=== PATIENT | female | born 1965 | race Caucasian/White ===

== ENCOUNTER 2016-12-11 17:32 | Inpatient (IN) | payer MEDICAID, OTHER ==
[2016-12-11] MEDS ORDERED: Morphine 4 MG/ML VIAL ONE ×3 (17:45→21:25)
[2016-12-11] MEDS ORDERED: Sodium Chloride 0.9% 1,000 ML IV ONE (17:47)
--- NOTE | 2016-12-11 17:47 | C.PDOC ---
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 PATIENT STATES ONSET WHILE LIFTING HEAVY PATIENT PAIN LOCALIZED CONSTANT. +[place]. HO HERNIA REPAIR IN SAME AREA OF PAIN 2005. NO FEVER. NPO SINCE 12PM EXAM SEVERE DIST MILD TOX HEENT ANICETERIC MMM ABD OBESE +CENTRAL HERNIA MASS W MOD SEVERE LOCAL TEND, NONREDUCIBLE. SOFT SKIN GOOD TURGOR (Elsie Dykes) History Per: Patient History/Exam Limitations: no limitations Onset/Duration Of Symptoms: Hrs Current Symptoms Are (Timing): Still Present Severity: Moderate <Elsie Dykes - Last Filed: 12/11/16 18:51> <Lorrie Aponte - Last Filed: 12/11/16 22:12> Time Seen by Provider: 12/11/16 17:43 Chief Complaint (Nursing): Abdominal Pain Past Medical History Reviewed: Historical Data, Nursing Documentation, Vital Signs - Medical History PMH: Anemia, Asthma Family History: States: No Known Family Hx - Social History Hx Tobacco Use: Yes Hx Alcohol Use: No Hx Substance Use: No - Immunization History Hx Tetanus Toxoid Vaccination: No Hx Influenza Vaccination: No Hx Pneumococcal Vaccination: No <Elsie Dykes - Last Filed: 12/11/16 18:51> Review Of Systems Except As Marked, All Systems Reviewed And Found Negative. Constitutional: Negative for: Fever Cardiovascular: Negative for: Chest Pain Gastrointestinal: Positive for: Nausea, Vomiting, Abdominal Pain Musculoskeletal: Negative for: Back Pain Neurological: Negative for: Weakness, Numbness <Elsie Dykes - Last Filed: 12/11/16 18:51> Physical Exam - Physical Exam Appears: Other (SEVERE DISTRESS. MILD TOX) Skin: Warm, Dry, No Rash, Other (GOOD TURGOR) Head: Atraumatic, Normacephalic Eye(s): bilateral: Normal Inspection, PERRL, Other (anicteric) Nose: Normal Oral Mucosa: Moist Lips: Normal Appearing Neck: Normal ROM Cardiovascular: Rhythm Regular, No Murmur Respiratory: Normal Breath Sounds, No Accessory Muscle Use Gastrointestinal/Abdominal: Other (+CENTRAL HERNIA MASS W MOD SEVERE LOCAL TEND , NONREDUCIBLE. SOFT) Extremity: Normal ROM Neurological/Psych: Oriented x3, Normal Speech <Elsie Dykes - Last Filed: 12/11/16 18:51> ED Course And Treatment - Laboratory Results Result Diagrams: 12/11/16 18:20 12/11/16 18:20 <Elsie Dykes - Last Filed: 12/11/16 18:51> - Laboratory Results Result Diagrams: 12/11/16 18:20 12/11/16 18:20 O2 Sat by Pulse Oximetry: 100 Pulse Ox Interpretation: Normal Progress Note: surgical garment inspector at bedside. Unsuccesfully attempted to reduce the hernia. Pt not tolerating PO. Vomited the contrast material. 10 pm repeat lactic is 0.6 Dr esquivel is aware. <Lorrie Aponte - Last Filed: 12/11/16 22:12> Progress - Data Reviewed Data Reviewed: Lab, Diagnostic imaging, EKG, Old records - Critical Care Citical Care: Excluding Proc Time Critical Care Time: 120 minutes - Continuity of Care Discussed patient case with:: Patient <Elsie Dykes - Last Filed: 12/11/16 18:51> <Lorrie Aponte - Last Filed: 12/11/16 22:12> - Re-Evaluation Re-evaluation Note: 12/11/16 18:12 D/W SURG RESIDENT MELISSA AWARE OF ER FINDINGS WILL EVAL IN ER 12/11/16 18:31 PROCEDURE CLOSED REDUCTION ABD WALL HERNIA. S/P MORPHINE, ATIVAN. UNABLE TO REDUCE. PT TOLERATED WELL. +LACTATE 12/11/16 18:43 SURG RESIDENT NOTIFIED OF FAILED REDUCTION AND LACTATE. PENDING ER EVAL (Elsie Dykes) Critical Care Time - Critical Care Note Total Time (in mins): 30 Documented critical care: time excludes all time spent performing seperately billable procedures. <Lorrie Aponte - Last Filed: 12/11/16 22:12> Disposition <Elsie Dykes - Last Filed: 12/11/16 18:51> Discussed With : Randolph Zhang Comment: accepted the pt on his service and took over the care at 9:30PM Doctor Will See Patient In The: ED Counseled Patient/Family Regarding: Studies Performed, Diagnosis - Disposition Disposition Time: 19:00 <Lorrie Aponte - Last Filed: 12/11/16 22:12> - Disposition Disposition: HOSPITALIZED Condition: GUARDED - Clinical Impression Clinical Impression: Abdominal pain, Incarcerated hernia of abdominal cavity - Scribe Statement The provider has reviewed the documentation as recorded by the Scribe (Jyothi Marks) <Elsie Dykes - Last Filed: 12/11/16 18:51> <Lorrie Aponte - Last Filed: 12/11/16 22:12> - Scribe Statement All medical record entries made by the Scribe were at my direction and personally dictated by me. I have reviewed the chart and agree that the record accurately reflects my personal performance of the history, physical exam, medical decision making, and the department course for this patient. I have also personally directed, reviewed, and agree with the discharge instructions and disposition. (Elsie Dykes) Physician Patient Turnover Patient Signed Over To: Lorrie Aponte Handoff Comments: FU POSSIBLE REDUCTION REATTEMPT, SURG RESIDENT, CT, DISPO, LABS <Elsie Dykes - Last Filed: 12/11/16 18:51> Decision To Admit <Elsie Dykes - Last Filed: 12/11/16 18:51> - Pt Status Changed To: Hospital Disposition Of: Inpatient - Admit Certification Admit to Inpatient:: After my assessment, the patient will require hospitalization for at least two midnights. This is because of the severity of symptoms shown, intensity of services needed, and/or the medical risk in this patient being treated as an outpatient. - InPatient: Physician Admission Certification:: After my assessment, the patient will require hospitalization for at least two midnights. This is because of the severity of symptoms shown, intensity of services needed, and/or the medical risk in this patient being treated as an outpatient. - . Bed Request Type: Regular Admitting Physician: Randolph Zhang <Lorrie Aponte - Last Filed: 12/11/16 22:12> - . Patient Diagnosis: Abdominal pain, Incarcerated hernia of abdominal cavity
[2016-12-11] MEDS ORDERED: Iohexol 240 (50 ml) PO ONE (18:14)
[2016-12-11] MEDS ORDERED: Sodium Chloride 0.9% 1,000 ML ONE (18:21)
[2016-12-11 18:23] LABS: BASO % 0.7 % (0.0-2.0); EOS # 0.1 K/uL (0.0-0.7); EOS % 2.2 % (0.0-4.0); HEMOGLOBIN 12.4 g/dL (11.0-16.0); LYMPH # 2.5 K/uL (1.0-4.3); LYMPH % 40.4 % (20.0-40.0); MEAN CELL VOLUME 86.9 fL (81.0-99.0); MEAN CORPUSCULAR HEMOGLOBIN 28.2 pg (27.0-31.0); MEAN CORPUSCULAR HGB CONC 32.5 g/dL (33.0-37.0); MEAN PLATELET VOLUME 10.3 fL (7.2-11.7); MONO # 0.4 K/uL (0.0-0.8); MONO % 6.8 % (0.0-10.0); NEUT # 3.1 K/uL (1.8-7.0); NEUT % 49.9 % (50.0-75.0); RBC 4.41 Mil/uL (3.80-5.20); RED CELL DISTRIBUTION WIDTH 15.2 % (11.5-14.5); WHITE BLOOD COUNT 6.2 K/uL (4.8-10.8)
[2016-12-11 18:24] LABS: VENOUS BLOOD GAS BASE EXCESS -0.3 mmol/L (0.0-2.0); VENOUS BLOOD GAS PCO2 32 mmHg (40-60); VENOUS BLOOD GAS PO2 29 mm/Hg (30-55); VENOUS BLOOD PH 7.46 (7.32-7.43)
[2016-12-11 18:33] LABS: ALBUMIN 3.8 g/dL (3.5-5.0)
[2016-12-11 18:35] LABS: GFR AFRICAN-AMERICAN > 60; GFR NON-AFRICAN AMERICAN > 60
[2016-12-11 18:36] LABS: ALB/GLOB RATIO 1.1 (1.0-2.1); ALT/SGPT 24 U/L (9-52); AST/SGOT 16 U/L (14-36); BLOOD UREA NITROGEN 6 mg/dL (7-17)
[2016-12-11 18:37] LABS: CALCIUM 8.2 mg/dl (8.6-10.4); LIPASE 43 U/L (23-300)
[2016-12-11] MEDS ORDERED: Iohexol 240 (50 ml) ONE (19:16)
[2016-12-11] MEDS ORDERED: Piperacillin/Tazobact 3.375 gm 100 ML IVPB STA (19:32)
[2016-12-11] MEDS ORDERED: Iodixanol 320 MG/ML 100 ML BOTTLE IV ONE (19:45)
[2016-12-11] MEDS ORDERED: Piperacillin/Tazobact 3.375 gm 100 ML IVPB ONE (19:55)
--- NOTE | 2016-12-11 20:49 | CT ---
EXAM: CT Abdomen and Pelvis With Intravenous Contrast CLINICAL HISTORY: 51 years old, female; Pain; Abdominal pain; Generalized; Patient HX: Severe abdominal pain/with vomiting after lifting a patient at the senior care; Additional info: Lower abd pain RO incarc hernia TECHNIQUE: Axial computed tomography images of the abdomen and pelvis with intravenous contrast. This CT exam was performed using one or more of the following dose reduction techniques: automated exposure control, adjustment of the mA and/or kV according to patient size, and/or use of iterative reconstruction technique. Coronal and sagittal reformatted images were created and reviewed. CONTRAST: 100 mL of VISIPAQUE administered intravenously. EXAM DATE/TIME: 12/11/2016 6:13 PM COMPARISON: There are no prior studies for comparison. FINDINGS: Lower thorax: Heart size is normal. There is atelectasis and scarring at the lung bases. There is a hiatal hernia. ABDOMEN: Liver: There is fatty infiltration of the liver. Gallbladder and bile ducts: unremarkable Pancreas: unremarkable Spleen: unremarkable Adrenals: There is bilateral adrenal thickening. Kidneys and ureters: unremarkable Stomach and bowel: Stomach is almost completely empty. Rotation is normal. The proximal small bowel is mildly distended. There is a ventral hernia containing small bowel and fat. There is mild inflammation in herniated fat. Small bowel loop in the hernia is mildly distended. There is narrowing of one bowel loop at the orifice of the hernia. Distal ileum is decompressed. Terminal ileum is unremarkable. Appendix is unremarkable.Colon is incompletely distended which limits evaluation. Appendix: See above. PELVIS: Bladder: unremarkable Reproductive: Uterus and adnexal structures are unremarkable. ABDOMEN and PELVIS: Intraperitoneal space: There is no significant fluid. There is no free air. Bones/joints: There are degenerative changes in the osseus structures. There is sclerosis at the sacroiliac joints. Soft tissues: unremarkable Vasculature: There are vascular calcifications. Lymph nodes: There is no pathologic adenopathy. IMPRESSION: Ventral hernia containing fat and small bowel, mild inflammation in herniated fat suggest incarceration, mild small bowel dilatation with distal decompression suggestive early or partial small bowel obstruction Additional findings as described above.
[2016-12-11] MEDS ORDERED: Potassium Chloride 10 mEq ER Tab PO STA (21:18)
[2016-12-11 22:03] LABS: VENOUS BLOOD GAS BASE EXCESS -2.9 mmol/L (0.0-2.0); VENOUS BLOOD GAS PCO2 38 mmHg (40-60); VENOUS BLOOD GAS PO2 66 mm/Hg (30-55); VENOUS BLOOD PH 7.37 (7.32-7.43)
[2016-12-11] MEDS ORDERED: Home Med 1 UNIT (Naproxen [Naprosyn] 1 TAB) PO PRN (22:27)
[2016-12-11] MEDS ORDERED: Albuterol 0.083% Inhal Sol (2.5 mg/3 mL) UD IH PRN (22:27)
[2016-12-11 22:33] LABS: SQUAMOUS EPITHIAL 1 /hpf (0-5); URINE BACTERIA OCC (<OCC); URINE BILIRUBIN NEGATIVE (NEGATIVE); URINE BLOOD NEGATIVE (NEGATIVE); URINE CLARITY Clear (Clear); URINE COLOR Yellow (YELLOW); URINE GLUCOSE (UA) NORMAL (Normal); URINE LEUKOCYTE ESTERASE NEG Leu/uL (Negative); URINE NITRATE NEGATIVE (NEGATIVE); URINE PROTEIN NEGATIVE (NEGATIVE); URINE UROBILINOGEN NORMAL mg/dL (0.2-1.0)
--- NOTE | 2016-12-11 22:40 | CP.PCM.CON ---
<Graciela Kaufman - Last Filed: 12/11/16 23:01> History of Present Illness - History of Present Illness History of Present Illness: GENERAL SURGERY HISTORY AND PHYSICAL FOR DR. ZHANG 51yo F with PMHx of bronchitis and asthma s/p ventral hernia repair in 2005 presents to the ED with abdominal pain and ventral hernia. 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 Right after, she felt abdominal pain and a bulge above her belly button where her previous ventral hernia repair was done. She had associated nausea and vomiting. She came to the ED and initial lactate was 3.0. Repeat lactate was 0.6. Of note, she had previously had a ventral hernia repair done in [place] in 2005. She is unsure if they used mesh. She never had a recurrence of the hernia until now. PMHx: bronchitis, asthma Surgeries: Open ventral hernia repair, x4, tubal ligation Allergies: none Social history: smokes 12-15 a day, drinks wine occasionally Review of Systems - Review of Systems All systems: reviewed and no additional remarkable complaints except (as per HPI ) Past Patient History - Past Social History Smoking Status: Heavy Smoker > 10 Cigarettes Daily - PULMONARY Hx Asthma: Yes - HEMATOLOGICAL/ONCOLOGICAL Hx Anemia: Yes - PSYCHIATRIC Hx Substance Use: No - SURGICAL HISTORY Hx Section: Yes (X4) Hx Orthopedic Surgery: Yes (LEFT KNEE) - ANESTHESIA Hx Anesthesia: No Hx Anesthesia Reactions: No Meds Allergies/Adverse Reactions: Allergies Allergy/AdvReac Type Severity Reaction Status Date / Time No Known Allergies Allergy Verified 12/11/16 18:46 - Medications Medications: Current Medications Albuterol (Ventolin Hfa 90 Mcg/Actuation (8 G)) 2 puff IH Q4H PRN PRN Reason: Cough Home Med (Albuterol Sulfate [Albuterol Sulfate 2.5mg/3 Ml 0.083%]) 3 ml IH Q4H PRN PRN Reason: Cough Home Med (Methylprednisolone [Medrol Dose Pack (21 Tabs)]) 4 mg PO DAILY [facility] Home Med (Naproxen [Naprosyn]) 1 tab PO BID PRN PRN Reason: Pain Sodium Chloride (Sodium Chloride 0.9%) 1,000 mls @ 125 mls/hr IV .Q8H [facility] Morphine Sulfate (Morphine) 4 mg IVP Q4 PRN PRN Reason: Pain, moderate (4-7) Ondansetron HCl (Zofran Inj) 4 mg IVP Q4 PRN PRN Reason: Nausea/Vomiting Physical Exam - Constitutional Appears: Well, Non-toxic, No Acute Distress - Head Exam Head Exam: ATRAUMATIC, NORMAL INSPECTION - Eye Exam Eye Exam: EOMI, Normal appearance - Respiratory Exam Respiratory Exam: NORMAL BREATHING PATTERN. absent: Respiratory Distress - Cardiovascular Exam Cardiovascular Exam: +S1, +S2. absent: Tachycardia - GI/Abdominal Exam GI & Abdominal Exam: Hernia, Soft, Tenderness (localized tenderness over hernia site only). absent: Distended, Firm, Rebound, Rigid Additional comments: Soft, non reducible, tender supra umbilical hernia, no erythema surrounding area scar and previous hernia scar well healed - Extremities Exam Extremities exam: Positive for: normal inspection - Neurological Exam Neurological exam: Alert, CN II-XII Intact, Oriented x3 - Psychiatric Exam Psychiatric exam: Flat Affect, Normal Affect, Normal Mood - Skin Skin Exam: Dry, Intact, Normal Color, Warm Results - Vital Signs Recent Vital Signs: Last Vital Signs Temp 98.9 F 12/11/16 21:45 Pulse 58 L 12/11/16 21:45 Resp 18 12/11/16 21:45 BP 155/81 H 12/11/16 21:45 Pulse Ox 100 12/11/16 22:12 - Labs Result Diagrams: 12/11/16 18:20 12/11/16 18:20 Labs: Laboratory Results - last 24 hr 12/11/16 21:59 pO2 66 H VBG pH 7.37 VBG pCO2 38 L VBG HCO3 22.5 VBG Total CO2 23.2 VBG O2 Sat (Calc) 97.1 H VBG Base Excess -2.9 L VBG Potassium 3.4 L Sodium 140.0 Chloride 115.0 H Glucose 102 Lactate 0.6 L Venous Blood Potassium 3.4 L Assessment & Plan - Assessment and Plan (Free Text) Assessment: 1yo F with PMHx of bronchitis and asthma s/p ventral hernia repair in 2005 who has incarcerated ventral hernia - Afebrile, VSS - Initial lactate 3.0, repeat 0.6 - CT: ventral hernia containing fat and small bowel, mild inflammation in herniated fat suggests incarceration, mild small bowel dilation with distal decompression suggestive of early or partial SBO - Plan for laparoscopic vs open ventral hernia repair tomorrow AM - NPO - Discussed plan with Dr. Vicente Kaufman PGY-3 <Randolph Zhang - Last Filed: 12/14/16 20:26> Meds - Medications Medications: Current Medications Acetaminophen (Tylenol 325mg Tab) 975 mg PO Q8 [facility] Last Admin: 12/14/16 14:35 Dose: Not Given Albuterol (Ventolin Hfa 90 Mcg/Actuation (8 G)) 2 puff IH Q4H PRN PRN Reason: Cough Last Admin: 12/14/16 08:55 Dose: 2 puff Albuterol Sulfate (Albuterol 0.083% Inhal Rand (2.5 Mg/3 Ml) Ud) 3 mg IH Q4H PRN PRN Reason: Cough Enoxaparin Sodium (Lovenox) 40 mg SC DAILY [facility] Last Admin: 12/14/16 09:47 Dose: 40 mg Ketorolac Tromethamine (Toradol) 10 mg PO Q6 PRN PRN Reason: Pain, moderate (4-7) Last Admin: 12/14/16 08:01 Dose: 10 mg Methylprednisolone (Medrol) 4 mg PO DAILY [facility] Last Admin: 12/14/16 09:48 Dose: 4 mg Ondansetron HCl (Zofran Inj) 4 mg IVP Q4H PRN PRN Reason: Nausea/Vomiting Oxycodone HCl (Oxycodone Immediate Release Tab) 5 mg PO Q6 PRN PRN Reason: Pain, severe (8-10) Last Admin: 12/14/16 19:28 Dose: 5 mg Potassium Chloride (K-Dur 20 Meq Er Tab) 20 meq PO DAILY [facility] Last Admin: 12/14/16 09:46 Dose: 20 meq Simethicone (Mylicon Chew Tab) 80 mg PO DAILY PRN PRN Reason: GI distress Results - Vital Signs Recent Vital Signs: Last Vital Signs Temp 99 F 12/14/16 15:00 Pulse 67 12/14/16 15:00 Resp 20 12/14/16 15:00 BP 169/97 H 12/14/16 15:00 Pulse Ox 99 12/14/16 15:00 - Labs Result Diagrams: 12/14/16 07:08 08/01/17 07:08 Labs: Laboratory Results - last 24 hr 12/14/16 12/14/16 07:08 07:08 WBC 7.7 RBC 3.86 Hgb 11.2 Hct 33.9 L MCV 87.8 MCH 29.0 MCHC 33.0 RDW 14.5 Plt Count 150 MPV 11.2 Neut % (Auto) 69.6 Lymph % (Auto) 19.5 L [place] % (Auto) 8.5 Eos % (Auto) 1.8 Baso % (Auto) 0.6 Neut # 5.4 Lymph # 1.5 [place] # 0.7 Eos # 0.1 Baso # 0.0 Sodium 137 Potassium 3.2 L Chloride 97 L Carbon Dioxide 29 Anion Gap 13 BUN 3 L Creatinine 0.4 L Est GFR ( Amer) > 60 Est GFR (Non-Af Amer) > 60 Random Glucose 104 Calcium 8.1 L Total Bilirubin 0.8 AST 16 ALT 24 Alkaline Phosphatase 81 Total Protein 5.9 L Albumin 3.0 L Globulin 2.9 Albumin/Globulin Ratio 1.1 Attending/Attestation - Attestation I have personally seen and examined this patient.: Yes I have fully participated in the care of the patient.: Yes I have reviewed all pertinent clinical information: Yes Notes (Text): 12/14/16 20:26 Pt was seen and examined at bedside on 12/12/16 Agree with above note and assessment Pt with Incarcerated Incisional hernia No signs of strangulation Labs reviewed OR for Lap Incisional hernia repair with mesh Consent NPO, IVF Plan d.w pt in detail. Risk and benefit explained in detail.
[2016-12-11 23:14] LABS: SQUAMOUS EPITHIAL 1 /hpf (0-5); URINE BILIRUBIN NEGATIVE (NEGATIVE); URINE BLOOD NEGATIVE (NEGATIVE); URINE CLARITY Clear (Clear); URINE COLOR Yellow (YELLOW); URINE GLUCOSE (UA) NORMAL (Normal); URINE LEUKOCYTE ESTERASE NEG Leu/uL (Negative); URINE NITRATE NEGATIVE (NEGATIVE); URINE PROTEIN NEGATIVE (NEGATIVE); URINE UROBILINOGEN NORMAL mg/dL (0.2-1.0)
[2016-12-11 23:15] LABS: URINE BACTERIA FEW (<OCC)
--- NOTE | 2016-12-11 23:30 | CP.PCM.HP ---
<ShaeGraciela - Last Filed: 12/11/16 23:31> History of Present Illness - History of Present Illness History of Present Illness: GENERAL SURGERY HISTORY AND PHYSICAL FOR DR. ZHANG 51yo F with PMHx of bronchitis and asthma s/p ventral hernia repair in 2005 presents to the ED with abdominal pain and ventral hernia. 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 Right after, she felt abdominal pain and a bulge above her belly button where her previous ventral hernia repair was done. She had associated nausea and vomiting. She came to the ED and initial lactate was 3.0. Repeat lactate was 0.6. Of note, she had previously had a ventral hernia repair done in [place] in 2005. She is unsure if they used mesh. She never had a recurrence of the hernia until now. PMHx: bronchitis, asthma Surgeries: Open ventral hernia repair, x4, tubal ligation Allergies: none Social history: smokes 12-15 a day, drinks wine occasionally Present on Admission - Present on Admission Any Indicators Present on Admission: No Review of Systems - Review of Systems All systems: reviewed and no additional remarkable complaints except (as per hpi ) Past Patient History - Past Social History Smoking Status: Heavy Smoker > 10 Cigarettes Daily - PULMONARY Hx Asthma: Yes - HEMATOLOGICAL/ONCOLOGICAL Hx Anemia: Yes - PSYCHIATRIC Hx Substance Use: No - SURGICAL HISTORY Hx Section: Yes (X4) Hx Orthopedic Surgery: Yes (LEFT KNEE) - ANESTHESIA Hx Anesthesia: No Hx Anesthesia Reactions: No Meds Allergies/Adverse Reactions: Allergies Allergy/AdvReac Type Severity Reaction Status Date / Time No Known Allergies Allergy Verified 12/11/16 18:46 Physical Exam - Constitutional Appears: Non-toxic, No Acute Distress - Head Exam Head Exam: ATRAUMATIC, NORMAL INSPECTION - Eye Exam Eye Exam: EOMI, Normal appearance - Respiratory Exam Respiratory Exam: NORMAL BREATHING PATTERN. absent: Respiratory Distress - Cardiovascular Exam Cardiovascular Exam: +S1, +S2 - GI/Abdominal Exam GI & Abdominal Exam: Hernia, Soft, Tenderness (localized tenderness over hernia site). absent: Distended, Firm, Guarding, Rebound, Rigid Additional comments: Soft, non reducible, tender supra umbilical hernia, no erythema surrounding area scar and previous hernia scar well healed - Extremities Exam Extremities exam: Positive for: normal inspection - Neurological Exam Neurological exam: Alert, CN II-XII Intact, Oriented x3 - Psychiatric Exam Psychiatric exam: Flat Affect - Skin Skin Exam: Dry, Normal Color, Warm Results - Vital Signs Recent Vital Signs: Last Vital Signs Temp 98.7 F 12/11/16 23:19 Pulse 60 12/11/16 23:19 Resp 18 12/11/16 23:19 BP 156/83 H 12/11/16 23:19 Pulse Ox 96 12/11/16 23:19 - Labs Result Diagrams: 12/11/16 18:20 12/11/16 18:20 Labs: Laboratory Results - last 24 hr 12/11/16 12/11/16 21:59 23:01 pO2 66 H VBG pH 7.37 VBG pCO2 38 L VBG HCO3 22.5 VBG Total CO2 23.2 VBG O2 Sat (Calc) 97.1 H VBG Base Excess -2.9 L VBG Potassium 3.4 L Sodium 140.0 Chloride 115.0 H Glucose 102 Lactate 0.6 L Venous Blood Potassium 3.4 L Urine Color Yellow Urine Clarity Clear Urine pH 5.0 Ur Specific [place] > 1.060 H Urine Protein Negative Urine Glucose (UA) Normal Urine Ketones Negative Urine Blood Negative Urine Nitrate Negative Urine Bilirubin Negative Urine Urobilinogen Normal Ur Leukocyte Esterase Neg Urine RBC (Auto) 1 Ur Squamous Epith Cells 1 Urine Bacteria Few H Assessment & Plan - Assessment and Plan (Free Text) Assessment: 51yo F with PMHx of bronchitis and asthma s/p ventral hernia repair in 2005 who has incarcerated ventral hernia - Afebrile, VSS - Initial lactate 3.0, repeat 0.6 - CT: ventral hernia containing fat and small bowel, mild inflammation in herniated fat suggests incarceration, mild small bowel dilation with distal decompression suggestive of early or partial SBO - Plan for laparoscopic vs open ventral hernia repair tomorrow AM - NPO - Discussed plan with Dr. Vicente Kaufman PGY-3 <Randolph Zhang - Last Filed: 12/14/16 20:04> Results - Vital Signs Recent Vital Signs: Last Vital Signs Temp 99 F 12/14/16 15:00 Pulse 67 12/14/16 15:00 Resp 20 12/14/16 15:00 BP 169/97 H 12/14/16 15:00 Pulse Ox 99 12/14/16 15:00 - Labs Result Diagrams: 12/14/16 07:08 12/14/16 07:08 Labs: Laboratory Results - last 24 hr 12/14/16 12/14/16 07:08 07:08 WBC 7.7 RBC 3.86 Hgb 11.2 Hct 33.9 L MCV 87.8 MCH 29.0 MCHC 33.0 RDW 14.5 Plt Count 150 MPV 11.2 Neut % (Auto) 69.6 Lymph % (Auto) 19.5 L [place] % (Auto) 8.5 Eos % (Auto) 1.8 Baso % (Auto) 0.6 Neut # 5.4 Lymph # 1.5 [place] # 0.7 Eos # 0.1 Baso # 0.0 Sodium 137 Potassium 3.2 L Chloride 97 L Carbon Dioxide 29 Anion Gap 13 BUN 3 L Creatinine 0.4 L Est GFR ( Amer) > 60 Est GFR (Non-Af Amer) > 60 Random Glucose 104 Calcium 8.1 L Total Bilirubin 0.8 AST 16 ALT 24 Alkaline Phosphatase 81 Total Protein 5.9 L Albumin 3.0 L Globulin 2.9 Albumin/Globulin Ratio 1.1 Attending/Attestation - Attestation I have personally seen and examined this patient.: Yes I have fully participated in the care of the patient.: Yes I have reviewed all pertinent clinical information: Yes Notes (Text): 12/14/16 20:03 Pt was seen and examined at bedside on 12/12/16 Agree with above note and assessment Pt with Incarcerated Incisional hernia No signs of strangulation Labs reviewed OR for Lap Incisional hernia repair with mesh Consent NPO, IVF Plan d.w pt in detail. Risk and benefit explained in detail.
[2016-12-12] MEDS: Morphine 4 MG/ML VIAL IVP PRN ×2 (02:25→07:57)
[2016-12-12] MEDS: Sodium Chloride 0.9% 1,000 ML IV SCH ×4 (02:26→22:09)
[2016-12-12] MEDS ORDERED: Morphine 4 MG/ML VIAL IVP STA (05:26)
[2016-12-12 08:32] LABS: BASO # 0.1 K/uL (0.0-0.2); BASO % 1.1 % (0.0-2.0); EOS # 0.1 K/uL (0.0-0.7); EOS % 1.5 % (0.0-4.0); HEMOGLOBIN 11.2 g/dL (11.0-16.0); LYMPH % 33.9 % (20.0-40.0); MEAN CELL VOLUME 88.2 fL (81.0-99.0); MEAN CORPUSCULAR HEMOGLOBIN 28.9 pg (27.0-31.0); MEAN CORPUSCULAR HGB CONC 32.7 g/dL (33.0-37.0); MEAN PLATELET VOLUME 10.6 fL (7.2-11.7); MONO # 0.4 K/uL (0.0-0.8); MONO % 6.9 % (0.0-10.0); NEUT # 3.4 K/uL (1.8-7.0); NEUT % 56.6 % (50.0-75.0); RBC 3.88 Mil/uL (3.80-5.20); RED CELL DISTRIBUTION WIDTH 15.1 % (11.5-14.5); WHITE BLOOD COUNT 5.9 K/uL (4.8-10.8)
[2016-12-12 08:48] LABS: ALBUMIN 3.1 g/dL (3.5-5.0)
[2016-12-12 08:50] LABS: GFR AFRICAN-AMERICAN > 60; GFR NON-AFRICAN AMERICAN > 60
[2016-12-12 08:51] LABS: ALB/GLOB RATIO 1.1 (1.0-2.1); ALT/SGPT 24 U/L (9-52); AST/SGOT 15 U/L (14-36); BLOOD UREA NITROGEN 5 mg/dL (7-17)
[2016-12-12 08:52] LABS: CALCIUM 7.7 mg/dl (8.6-10.4)
--- NOTE | 2016-12-12 11:09 | RAD ---
HISTORY: pre op COMPARISON: 04/12/2014 FINDINGS: LUNGS: The lungs are well inflated and clear. PLEURA: No significant pleural effusion identified, no pneumothorax apparent. CARDIOVASCULAR: The heart is normal in size. OSSEOUS STRUCTURES: No significant abnormalities. VISUALIZED UPPER ABDOMEN: Normal. OTHER FINDINGS: None. IMPRESSION: No active pulmonary disease.
[2016-12-12 11:29] LABS: INR 1.1; PROTHROMBIN TIME 12.4 SECONDS (9.7-12.2)
[2016-12-12] MEDS ORDERED: HYDROmorphone 0.5 mg/0.5 ml ISec IVP STA (11:43)
[2016-12-12] MEDS ORDERED: Lactated Ringer's 1,000 ML IV ONE ×4 (12:20→16:00)
[2016-12-12] MEDS ORDERED: ceFAZolin IV 2 gm in Dextrose 1 GM/50 ML BAG IVPB ONE (12:25)
[2016-12-12] MEDS ORDERED: Midazolam 2 MG/2 ML VIAL ONE (12:27)
[2016-12-12] MEDS ORDERED: Propofol 10 mg/ml Inj (20 ML) ONE (12:27)
[2016-12-12] MEDS ORDERED: Bupivacaine HCl 0.25% PF (10 ml) Inj ONE (12:49)
[2016-12-12] MEDS ORDERED: Lidocaine 1% w Epi 1:100,000 Inj ONE (12:49)
[2016-12-12] MEDS ORDERED: Succinylcholine Chloride 20 mg/ml Syr (5 ml) IV ONE (13:57)
[2016-12-12] MEDS ORDERED: DiphenhydrAMINE 50 mg/ml Inj IVP PRN (14:56)
[2016-12-12] MEDS ORDERED: HYDROmorphone 0.5 mg/0.5 ml ISec IVP PRN ×2 (14:56→16:06)
--- NOTE | 2016-12-12 16:04 | PCM.SURG1 ---
Surgeon's Initial Post Op Note - Surgeon's Notes Surgeon: Dr. Zhang Ux Developer: Dr. Rebolledo PGY-2 Type of Anesthesia: General Endo Pre-Operative Diagnosis: incarcerated ventral hernia Operative Findings: see operative report Post-Operative Diagnosis: see operative report Operation Performed: extensive lysis of adhesions. incarcerated ventral hernia repair w/ mesh placement Specimen/Specimens Removed: hernia sac. mesh from prior hernia surgical repair Estimated Blood Loss: EBL {In ML}: 10 Blood Products Given: N/A Drains Used: No Drains Post-Op Condition: Good Date of Surgery/Procedure: 12/12/16 Time of Surgery/Procedure: 16:03
[2016-12-12] MEDS: Piperacillin/Tazobact 3.375 GM in Sodium Chloride 100 ML IVPB SCH ×2 (16:35→22:08)
[2016-12-12] MEDS: HYDROmorphone 0.5 mg/0.5 ml ISec IVP PRN ×2 (17:26→20:55)
[2016-12-12] MEDS: Lactated Ringer's 1,000 ML IV SCH (19:26)
[2016-12-13] MEDS: HYDROmorphone 0.5 mg/0.5 ml ISec IVP PRN ×3 (00:01→06:04)
[2016-12-13] MEDS: Piperacillin/Tazobact 3.375 GM in Sodium Chloride 100 ML IVPB SCH ×2 (06:00→10:41)
[2016-12-13] MEDS: Lactated Ringer's 1,000 ML IV SCH ×2 (06:08→11:32)
[2016-12-13] MEDS: Sodium Chloride 0.9% 1,000 ML IV SCH (06:21)
[2016-12-13 07:59] LABS: BASO % 0.4 % (0.0-2.0); EOS % 0.3 % (0.0-4.0); HEMOGLOBIN 10.8 g/dL (11.0-16.0); LYMPH # 1.2 K/uL (1.0-4.3); LYMPH % 14.4 % (20.0-40.0); MEAN CELL VOLUME 87.7 fL (81.0-99.0); MEAN CORPUSCULAR HEMOGLOBIN 28.8 pg (27.0-31.0); MEAN CORPUSCULAR HGB CONC 32.8 g/dL (33.0-37.0); MEAN PLATELET VOLUME 10.6 fL (7.2-11.7); MONO # 0.6 K/uL (0.0-0.8); MONO % 7.1 % (0.0-10.0); NEUT # 6.4 K/uL (1.8-7.0); NEUT % 77.8 % (50.0-75.0); RBC 3.76 Mil/uL (3.80-5.20); RED CELL DISTRIBUTION WIDTH 14.5 % (11.5-14.5); WHITE BLOOD COUNT 8.2 K/uL (4.8-10.8)
[2016-12-13 08:07] LABS: ALBUMIN 3.1 g/dL (3.5-5.0)
[2016-12-13 08:10] LABS: AST/SGOT 19 U/L (14-36); GFR AFRICAN-AMERICAN > 60; GFR NON-AFRICAN AMERICAN > 60
[2016-12-13 08:11] LABS: ALB/GLOB RATIO 1.1 (1.0-2.1); ALT/SGPT 23 U/L (9-52); BLOOD UREA NITROGEN 5 mg/dL (7-17)
[2016-12-13] MEDS ORDERED: Oxycodone/Acetaminophen 5/325 mg Tab PO PRN ×4 (09:16→17:46)
[2016-12-13] MEDS: Enoxaparin 40 mg Syringe SC SCH (09:33)
--- NOTE | 2016-12-13 12:29 | CP.PCM.PN ---
<Winston LoganLetarosy - Last Filed: 12/13/16 12:26> Subjective - Date & Time of Evaluation Date of Evaluation: 12/13/16 Time of Evaluation: 12:26 - Subjective Subjective: Surgery: Dr. Zhang Patient complaining of mild pain to the abdomen. She states she feels much better than she did prior to surgery. She denies f/c/n/v. She reports dry cough. She states she has been OOB to bathroom. She reports using IS. Objective - Vital Signs/Intake and Output Vital Signs (last 24 hours): Temp Pulse Resp BP Pulse Ox 98 F 64 20 148/103 H 99 12/13/16 08:18 12/13/16 08:18 12/13/16 08:18 12/13/16 08:18 12/13/16 08:18 Intake and Output: 12/13/16 12/13/16 06:59 18:59 Intake Total 2200 Output Total 800 Balance 1400 - Medications Medications: Current Medications Albuterol (Ventolin Hfa 90 Mcg/Actuation (8 G)) 2 puff IH Q4H PRN PRN Reason: Cough Albuterol Sulfate (Albuterol 0.083% Inhal Rand (2.5 Mg/3 Ml) Ud) 3 mg IH Q4H PRN PRN Reason: Cough Enoxaparin Sodium (Lovenox) 40 mg SC DAILY [facility] Last Admin: 12/13/16 09:33 Dose: 40 mg Potassium Chloride/Dextrose/Sod Cl (Potassium Chl 20 Meq In D5-1/2ns) 1,000 mls @ 125 mls/hr IV .Q8H [facility] Ibuprofen (Motrin Tab) 600 mg PO QID PRN PRN Reason: Pain, moderate (4-7) Methylprednisolone (Medrol) 4 mg PO DAILY [facility] Last Admin: 12/13/16 09:33 Dose: 4 mg Ondansetron HCl (Zofran Inj) 4 mg IVP Q4H PRN PRN Reason: Nausea/Vomiting Oxycodone/Acetaminophen (Percocet 5/325 Mg Tab) 1 tab PO Q4H PRN PRN Reason: Pain, moderate (4-7) Stop: 12/16/16 12:26 Oxycodone/Acetaminophen (Percocet 5/325 Mg Tab) 2 tab PO Q4H PRN PRN Reason: Pain, severe (8-10) Stop: 12/16/16 09:17 Pneumococcal Polyvalent Vaccine (Pneumovax 23 Vaccine) 0.5 ml IM .ONCE ONE Stop: 12/14/16 15:10 - Labs Labs: 12/13/16 07:45 12/13/16 07:45 PT 12.4 SECONDS (9.7-12.2) H 12/12/16 11:17 INR 1.1 12/12/16 11:17 APTT 33 SECONDS (21-34) 12/12/16 11:17 - Constitutional Appears: Non-toxic, No Acute Distress - Head Exam Head Exam: ATRAUMATIC, NORMOCEPHALIC - Eye Exam Eye Exam: EOMI, Normal appearance - ENT Exam ENT Exam: Mucous Membranes Moist - Respiratory Exam Respiratory Exam: NORMAL BREATHING PATTERN. absent: Respiratory Distress - Cardiovascular Exam Cardiovascular Exam: REGULAR RHYTHM. absent: Tachycardia - GI/Abdominal Exam GI & Abdominal Exam: Soft, Tenderness (nohemy-incisional which is appropriate. Dressing CDI. ). absent: Guarding, Rigid, Rebound - Neurological Exam Neurological Exam: Alert, Awake, Oriented x3 - Psychiatric Exam Psychiatric exam: Normal Affect, Normal Mood - Skin Skin Exam: Dry, Normal Color, Warm Assessment and Plan - Assessment and Plan (Free Text) Assessment: 51 y/o female s/p incarcerated ventral hernia laparoscopic repair w/ mesh POD1 Plan: -regular diet -pain control -DVT prohylaxis -encourage OOB and IS use -further recs per Dr. Zhang AKWhite PGY3 <Randolph Zhang B - Last Filed: 12/14/16 20:14> Objective - Vital Signs/Intake and Output Vital Signs (last 24 hours): Temp Pulse Resp BP Pulse Ox 99 F 67 20 169/97 H 99 12/14/16 15:00 12/14/16 15:00 12/14/16 15:00 12/14/16 15:00 12/14/16 15:00 Intake and Output: 12/14/16 12/15/16 18:59 06:59 Intake Total 1300 Balance 1300 - Medications Medications: Current Medications Acetaminophen (Tylenol 325mg Tab) 975 mg PO Q8 [facility] Last Admin: 12/14/16 14:35 Dose: Not Given Albuterol (Ventolin Hfa 90 Mcg/Actuation (8 G)) 2 puff IH Q4H PRN PRN Reason: Cough Last Admin: 12/14/16 08:55 Dose: 2 puff Albuterol Sulfate (Albuterol 0.083% Inhal Rand (2.5 Mg/3 Ml) Ud) 3 mg IH Q4H PRN PRN Reason: Cough Enoxaparin Sodium (Lovenox) 40 mg SC DAILY [facility] Last Admin: 12/14/16 09:47 Dose: 40 mg Ketorolac Tromethamine (Toradol) 10 mg PO Q6 PRN PRN Reason: Pain, moderate (4-7) Last Admin: 12/14/16 08:01 Dose: 10 mg Methylprednisolone (Medrol) 4 mg PO DAILY [facility] Last Admin: 12/14/16 09:48 Dose: 4 mg Ondansetron HCl (Zofran Inj) 4 mg IVP Q4H PRN PRN Reason: Nausea/Vomiting Oxycodone HCl (Oxycodone Immediate Release Tab) 5 mg PO Q6 PRN PRN Reason: Pain, severe (8-10) Last Admin: 12/14/16 19:28 Dose: 5 mg Potassium Chloride (K-Dur 20 Meq Er Tab) 20 meq PO DAILY [facility] Last Admin: 12/14/16 09:46 Dose: 20 meq Simethicone (Mylicon Chew Tab) 80 mg PO DAILY PRN PRN Reason: GI distress - Labs Labs: 12/14/16 07:08 12/14/16 07:08 PT 12.4 SECONDS (9.7-12.2) H 12/12/16 11:17 INR 1.1 12/12/16 11:17 APTT 33 SECONDS (21-34) 12/12/16 11:17 Attending/Attestation - Attestation I have personally seen and examined this patient.: Yes I have fully participated in the care of the patient.: Yes I have reviewed all pertinent clinical information, including history, physical exam and plan: Yes Notes (Text): 12/14/16 20:14 Pt was seen and examined at bedside on 12/13/16 Agree with above note and assessment
[2016-12-13] MEDS: Potassium Chloride 20 mEq ER Tab PO SCH (13:16)
[2016-12-13] MEDS: Potassium Ch 20mEq in D5-1/2NS 1,000 ML IV SCH ×2 (13:18→22:56)
[2016-12-14 02:37] VITALS: RESP 20
[2016-12-14] MEDS: Potassium Ch 20mEq in D5-1/2NS 1,000 ML IV SCH ×2 (05:00→12:27)
[2016-12-14 07:26] LABS: BASO % 0.6 % (0.0-2.0); EOS # 0.1 K/uL (0.0-0.7); EOS % 1.8 % (0.0-4.0); HEMOGLOBIN 11.2 g/dL (11.0-16.0); LYMPH # 1.5 K/uL (1.0-4.3); LYMPH % 19.5 % (20.0-40.0); MEAN CELL VOLUME 87.8 fL (81.0-99.0); MEAN PLATELET VOLUME 11.2 fL (7.2-11.7); MONO # 0.7 K/uL (0.0-0.8); MONO % 8.5 % (0.0-10.0); NEUT # 5.4 K/uL (1.8-7.0); NEUT % 69.6 % (50.0-75.0); RBC 3.86 Mil/uL (3.80-5.20); RED CELL DISTRIBUTION WIDTH 14.5 % (11.5-14.5); WHITE BLOOD COUNT 7.7 K/uL (4.8-10.8)
[2016-12-14 07:53] LABS: GFR AFRICAN-AMERICAN > 60; GFR NON-AFRICAN AMERICAN > 60
[2016-12-14 07:54] LABS: ALB/GLOB RATIO 1.1 (1.0-2.1); ALT/SGPT 24 U/L (9-52); AST/SGOT 16 U/L (14-36); BLOOD UREA NITROGEN 3 mg/dL (7-17); CALCIUM 8.1 mg/dl (8.6-10.4)
[2016-12-14] MEDS: Albuterol HFA 90 mcg/actuation (8 g) IH PRN (08:55)
[2016-12-14] MEDS ORDERED: Simethicone 80 mg Chewtab PO PRN (09:43)
[2016-12-14] MEDS: Potassium Chloride 20 mEq ER Tab PO SCH (09:46)
[2016-12-14] MEDS: Enoxaparin 40 mg Syringe SC SCH (09:47)
--- NOTE | 2016-12-14 09:51 | CP.PCM.PN ---
<Mann Rebolledo - Last Filed: 12/14/16 22:23> Subjective - Date & Time of Evaluation Date of Evaluation: 12/14/16 Time of Evaluation: 07:00 - Subjective Subjective: Patient seen and examined this morning. Reports mild abdominal pain along surgical incision sites. Patient tolerating diet. Had bowel movement this morning. Abdominal dressings c/d/i. Objective - Vital Signs/Intake and Output Vital Signs (last 24 hours): Temp Pulse Resp BP Pulse Ox 98.9 F 63 20 155/87 H 99 12/14/16 07:41 12/14/16 07:41 12/14/16 07:41 12/14/16 07:41 12/14/16 07:41 Intake and Output: 12/14/16 12/14/16 06:59 18:59 Intake Total 1780 Balance 1780 - Medications Medications: Current Medications Acetaminophen (Tylenol 325mg Tab) 650 mg PO Q6 PRN PRN Reason: Pain, Mild (1-3) Albuterol (Ventolin Hfa 90 Mcg/Actuation (8 G)) 2 puff IH Q4H PRN PRN Reason: Cough Last Admin: 12/14/16 08:55 Dose: 2 puff Albuterol Sulfate (Albuterol 0.083% Inhal Rand (2.5 Mg/3 Ml) Ud) 3 mg IH Q4H PRN PRN Reason: Cough Enoxaparin Sodium (Lovenox) 40 mg SC DAILY [facility] Last Admin: 12/14/16 09:47 Dose: 40 mg Potassium Chloride/Dextrose/Sod Cl (Potassium Chl 20 Meq In D5-1/2ns) 1,000 mls @ 125 mls/hr IV .Q8H [facility] Last Admin: 12/14/16 05:00 Dose: 125 mls/hr Ketorolac Tromethamine (Toradol) 10 mg PO Q6 PRN PRN Reason: Pain, moderate (4-7) Last Admin: 12/14/16 08:01 Dose: 10 mg Methylprednisolone (Medrol) 4 mg PO DAILY [facility] Last Admin: 12/14/16 09:48 Dose: 4 mg Ondansetron HCl (Zofran Inj) 4 mg IVP Q4H PRN PRN Reason: Nausea/Vomiting Oxycodone/Acetaminophen (Percocet 5/325 Mg Tab) 1 tab PO Q4H PRN PRN Reason: Pain, severe (8-10) Stop: 12/16/16 12:26 Last Admin: 12/13/16 22:54 Dose: 1 tab Pneumococcal Polyvalent Vaccine (Pneumovax 23 Vaccine) 0.5 ml IM .ONCE ONE Stop: 12/14/16 15:10 Potassium Chloride (K-Dur 20 Meq Er Tab) 20 meq PO DAILY [facility] Last Admin: 12/14/16 09:46 Dose: 20 meq Simethicone (Mylicon Chew Tab) 80 mg PO DAILY PRN PRN Reason: GI distress - Labs Labs: 12/14/16 07:08 12/14/16 07:08 PT 12.4 SECONDS (9.7-12.2) H 12/12/16 11:17 INR 1.1 12/12/16 11:17 APTT 33 SECONDS (21-34) 12/12/16 11:17 - Constitutional Appears: No Acute Distress - Head Exam Head Exam: NORMOCEPHALIC - Eye Exam Eye Exam: Normal appearance - ENT Exam ENT Exam: Mucous Membranes Moist - Respiratory Exam Respiratory Exam: NORMAL BREATHING PATTERN - Cardiovascular Exam Cardiovascular Exam: +S1, +S2 - GI/Abdominal Exam GI & Abdominal Exam: Soft, Tenderness - Neurological Exam Neurological Exam: Alert, Awake, Oriented x3 - Psychiatric Exam Psychiatric exam: Normal Mood - Skin Skin Exam: Normal Color, Warm Assessment and Plan - Assessment and Plan (Free Text) Assessment: 51 y/o female s/p incarcerated ventral hernia laparoscopic repair w/ mesh POD2 -regular diet -c/w analgesic -simethicone -DVT prohylaxis -encourage OOB and IS use -Monitor bowel function -further recs per Dr. Vicente Rebolledo PGY-2 <Randolph Zhang - Last Filed: 12/15/16 11:36> Objective - Vital Signs/Intake and Output Vital Signs (last 24 hours): Temp Pulse Resp BP Pulse Ox 98.5 F 80 20 127/82 96 12/15/16 08:00 12/15/16 08:00 12/15/16 08:00 12/15/16 08:00 12/15/16 08:00 Intake and Output: 12/15/16 12/15/16 06:59 18:59 Intake Total 490 Balance 490 - Medications Medications: Current Medications Acetaminophen (Tylenol 325mg Tab) 975 mg PO Q8 [facility] Last Admin: 12/15/16 06:31 Dose: Not Given Albuterol (Ventolin Hfa 90 Mcg/Actuation (8 G)) 2 puff IH Q4H PRN PRN Reason: Cough Last Admin: 12/15/16 03:12 Dose: 2 puff Albuterol Sulfate (Albuterol 0.083% Inhal Rand (2.5 Mg/3 Ml) Ud) 3 mg IH Q4H PRN PRN Reason: Cough Enoxaparin Sodium (Lovenox) 40 mg SC DAILY [facility] Last Admin: 12/15/16 10:07 Dose: Not Given Ketorolac Tromethamine (Toradol) 10 mg PO Q6 PRN PRN Reason: Pain, moderate (4-7) Last Admin: 12/14/16 08:01 Dose: 10 mg Methylprednisolone (Medrol) 4 mg PO DAILY [facility] Last Admin: 12/15/16 10:07 Dose: Not Given Ondansetron HCl (Zofran Inj) 4 mg IVP Q4H PRN PRN Reason: Nausea/Vomiting Last Admin: 12/15/16 02:45 Dose: 4 mg Oxycodone HCl (Oxycodone Immediate Release Tab) 5 mg PO Q6 PRN PRN Reason: Pain, severe (8-10) Last Admin: 12/15/16 03:07 Dose: 5 mg Potassium Chloride (K-Dur 20 Meq Er Tab) 20 meq PO DAILY [facility] Last Admin: 12/15/16 10:07 Dose: 20 meq Simethicone (Mylicon Chew Tab) 80 mg PO DAILY PRN PRN Reason: GI distress Last Admin: 12/15/16 02:45 Dose: 80 mg - Labs Labs: 12/14/16 07:08 12/14/16 07:08 PT 12.4 SECONDS (9.7-12.2) H 12/12/16 11:17 INR 1.1 12/12/16 11:17 APTT 33 SECONDS (21-34) 12/12/16 11:17 Attending/Attestation - Attestation I have personally seen and examined this patient.: Yes I have fully participated in the care of the patient.: Yes I have reviewed all pertinent clinical information, including history, physical exam and plan: Yes Notes (Text): 12/15/16 11:36 Pt was seen and examined at bedside on 12/14/16 Agree with above note and assessment
[2016-12-14] MEDS ORDERED: Potassium Chloride 20 mEq ER Tab PO ONE (12:45)
[2016-12-14] MEDS ORDERED: Pneumococcal 23-Valent Vaccine IM ONE (15:09)
[2016-12-14] MEDS: oxyCODONE 5 mg Immediate Release Tab PO PRN (19:28)
--- NOTE | 2016-12-15 02:50 | OP ---
PROCEDURE DATE: 12/12/2016 PREOPERATIVE DIAGNOSES: 1. Incarcerated ventral hernia. 2. Abdominal pain. 3. Morbid obesity. 4. Status post umbilical hernia repair 10 years ago and also status post section. POSTOPERATIVE DIAGNOSES: 1. Incarcerated ventral hernia. 2. Abdominal pain. 3. Morbid obesity. 4. Status post umbilical hernia repair 10 years ago and also status post section. 5. Extensive postoperative adhesion. PROCEDURE DONE: 1. Laparoscopic incisional incarcerated hernia repair with mesh. 2. Laparoscopic extensive lysis of adhesion. 3. Laparoscopic removal of old mesh/foreign body. 4. Laparoscopic enterorrhaphy for subserosal hematoma SURGEON: Randolph Zhang MD SPRAY BLENDER: Mann Rebolledo, PGY-II resident. TYPE OF ANESTHESIA: General endotracheal tube anesthesia. DRAINS: None. PATHOLOGY: 1. Hernia sac and content was sent for the pathology. 2. Foreign body and old mesh. ESTIMATED BLOOD LOSS: Around 10 mL. INTRAOPERATIVE FINDINGS: The patient had extensive postoperative adhesions due to the previous umbilical hernia as well as a previous and the patient had an incarcerated omentum with part of the small bowel. The small bowel was nonischemic, but some part of the small bowel had subserosal hematoma. On intraoperative test, this is a 51-year-old female was diagnosed with incarcerated incisional hernia and the patient was consented for laparoscopic incisional hernia repair with mesh. DESCRIPTION OF PROCEDURE: The patient was brought to the OR, placed supine on the operating table. After induction of anesthesia, abdomen was prepped and draped in the usual sterile fashion and left upper quadrant incision was made using the Visiport technique. Peritoneal cavity was entered, pneumo was created, and patient found to have extensive adhesion in the lower abdomen as well as mid abdomen. Another 5 mm port was placed and extensive lysis of adhesion was done with LigaSure and incarcerated hernia was identified. Now, the fascial incision was made to release the omentum and first small bowel was reduced and omentum was also reduced back in the peritoneal cavity. The hernial sac and content was excised and it was sent to the table for the pathology. Now, the patient was found to have old mesh. The old mesh was also excised and it was sent to the table for the pathology and hernial sac and defect were closed with transfascial #2 Ethibond sutures and the defect was approximated and 9 cm circular mesh was placed and mesh was implanted. After proper implantation of the mesh and after proper hemostasis, the small bowel was examined. The small bowel appeared to be normal and there was one place patient had subcapsular hematoma. The enterorrhaphy was done and the subcapsular hematoma was covered with normal serosal sutures. After that, all the ports were taken out under vision, pneumo was deflated. All the port sites were closed in two layers with 2-0 Vicryl in subcu and 4-0 Monocryl and dry sterile dressing was applied. The patient tolerated the procedure well. Count of the instrument was correct. There was no apparent complication. The patient was extubated in OR, sent to the postanesthesia care unit in stable condition. Randolph Zhang MD [id number]
[2016-12-15] MEDS: oxyCODONE 5 mg Immediate Release Tab PO PRN (03:07)
[2016-12-15] MEDS: Albuterol HFA 90 mcg/actuation (8 g) IH PRN (03:12)
--- NOTE | 2016-12-15 08:27 | CP.PCM.PN ---
<Mann Rebolledo - Last Filed: 12/15/16 08:25> Subjective - Date & Time of Evaluation Date of Evaluation: 12/15/16 Time of Evaluation: 07:25 - Subjective Subjective: Patient seen and examined this morning. Reports abdominal pain is improving, slight discomfort along surgical incision sites. Patient reports having a small bout of emesis around 2AM. Passing flatus and having normal BM. Objective - Vital Signs/Intake and Output Vital Signs (last 24 hours): Temp Pulse Resp BP Pulse Ox 99.2 F 66 20 150/83 95 12/14/16 23:41 12/14/16 23:41 12/14/16 23:41 12/14/16 23:41 12/14/16 23:41 Intake and Output: 12/15/16 12/15/16 06:59 18:59 Intake Total 490 Balance 490 - Medications Medications: Current Medications Acetaminophen (Tylenol 325mg Tab) 975 mg PO Q8 [facility] Last Admin: 12/15/16 06:31 Dose: Not Given Albuterol (Ventolin Hfa 90 Mcg/Actuation (8 G)) 2 puff IH Q4H PRN PRN Reason: Cough Last Admin: 12/15/16 03:12 Dose: 2 puff Albuterol Sulfate (Albuterol 0.083% Inhal Rand (2.5 Mg/3 Ml) Ud) 3 mg IH Q4H PRN PRN Reason: Cough Enoxaparin Sodium (Lovenox) 40 mg SC DAILY [facility] Last Admin: 12/14/16 09:47 Dose: 40 mg Ketorolac Tromethamine (Toradol) 10 mg PO Q6 PRN PRN Reason: Pain, moderate (4-7) Last Admin: 12/14/16 08:01 Dose: 10 mg Methylprednisolone (Medrol) 4 mg PO DAILY [facility] Last Admin: 12/14/16 09:48 Dose: 4 mg Ondansetron HCl (Zofran Inj) 4 mg IVP Q4H PRN PRN Reason: Nausea/Vomiting Last Admin: 12/15/16 02:45 Dose: 4 mg Oxycodone HCl (Oxycodone Immediate Release Tab) 5 mg PO Q6 PRN PRN Reason: Pain, severe (8-10) Last Admin: 12/15/16 03:07 Dose: 5 mg Potassium Chloride (K-Dur 20 Meq Er Tab) 20 meq PO DAILY [facility] Last Admin: 12/14/16 09:46 Dose: 20 meq Simethicone (Mylicon Chew Tab) 80 mg PO DAILY PRN PRN Reason: GI distress Last Admin: 12/15/16 02:45 Dose: 80 mg - Labs Labs: 12/14/16 07:08 12/14/16 07:08 PT 12.4 SECONDS (9.7-12.2) H 12/12/16 11:17 INR 1.1 12/12/16 11:17 APTT 33 SECONDS (21-34) 12/12/16 11:17 - Constitutional Appears: No Acute Distress - Head Exam Head Exam: NORMOCEPHALIC - Eye Exam Eye Exam: Normal appearance - ENT Exam ENT Exam: Mucous Membranes Moist - Respiratory Exam Respiratory Exam: NORMAL BREATHING PATTERN - Cardiovascular Exam Cardiovascular Exam: +S1, +S2 - GI/Abdominal Exam GI & Abdominal Exam: Soft, Tenderness - Rectal Exam Rectal Exam: NORMAL INSPECTION - Neurological Exam Neurological Exam: Alert, Awake, Oriented x3 - Skin Skin Exam: Dry, Intact, Warm Assessment and Plan - Assessment and Plan (Free Text) Assessment: 51F s/p laparoscopic repair of incarcerated ventral hernia POD4 -Regular diet -Encourage IS& OOB and ambulation -Patient clear for discharge from surgical standpoint -Follow up with Dr. Zhang in 7-10 days -Further recs per Dr. Vicente Rebolledo PGY-2 <Randolph Zhang - Last Filed: 12/15/16 11:43> Objective - Vital Signs/Intake and Output Vital Signs (last 24 hours): Temp Pulse Resp BP Pulse Ox 98.5 F 80 20 127/82 96 12/15/16 08:00 12/15/16 08:00 12/15/16 08:00 12/15/16 08:00 12/15/16 08:00 Intake and Output: 12/15/16 12/15/16 06:59 18:59 Intake Total 490 Balance 490 - Medications Medications: Current Medications Acetaminophen (Tylenol 325mg Tab) 975 mg PO Q8 [facility] Last Admin: 12/15/16 06:31 Dose: Not Given Albuterol (Ventolin Hfa 90 Mcg/Actuation (8 G)) 2 puff IH Q4H PRN PRN Reason: Cough Last Admin: 12/15/16 03:12 Dose: 2 puff Albuterol Sulfate (Albuterol 0.083% Inhal Rand (2.5 Mg/3 Ml) Ud) 3 mg IH Q4H PRN PRN Reason: Cough Enoxaparin Sodium (Lovenox) 40 mg SC DAILY [facility] Last Admin: 12/15/16 10:07 Dose: Not Given Ketorolac Tromethamine (Toradol) 10 mg PO Q6 PRN PRN Reason: Pain, moderate (4-7) Last Admin: 12/14/16 08:01 Dose: 10 mg Methylprednisolone (Medrol) 4 mg PO DAILY [facility] Last Admin: 12/15/16 10:07 Dose: Not Given Ondansetron HCl (Zofran Inj) 4 mg IVP Q4H PRN PRN Reason: Nausea/Vomiting Last Admin: 12/15/16 02:45 Dose: 4 mg Oxycodone HCl (Oxycodone Immediate Release Tab) 5 mg PO Q6 PRN PRN Reason: Pain, severe (8-10) Last Admin: 12/15/16 03:07 Dose: 5 mg Potassium Chloride (K-Dur 20 Meq Er Tab) 20 meq PO DAILY [facility] Last Admin: 12/15/16 10:07 Dose: 20 meq Simethicone (Mylicon Chew Tab) 80 mg PO DAILY PRN PRN Reason: GI distress Last Admin: 12/15/16 02:45 Dose: 80 mg - Labs Labs: 12/14/16 07:08 12/14/16 07:08 PT 12.4 SECONDS (9.7-12.2) H 12/12/16 11:17 INR 1.1 12/12/16 11:17 APTT 33 SECONDS (21-34) 12/12/16 11:17 Attending/Attestation - Attestation I have personally seen and examined this patient.: Yes I have fully participated in the care of the patient.: Yes I have reviewed all pertinent clinical information, including history, physical exam and plan: Yes Notes (Text): 12/15/16 11:43 Pt was seen and examined at bedside on 12/15/16 Agree with above note and assessment
--- NOTE | 2016-12-15 08:33 | CP.PCM.DIS ---
Provider - Provider Date of Admission: 12/11/16 21:49 Attending physician: Randolph Zhang MD Time Spent in preparation of Discharge (in minutes): 20 Hospital Course - Lab Results Lab Results: Micro Results 12/11/16 Unknown Urine Urine Culture - Final No Growth (<1,000 CFU/ML) Most Recent Lab Values WBC 7.7 K/uL (4.8-10.8) 12/14/16 07:08 RBC 3.86 Mil/uL (3.80-5.20) 12/14/16 07:08 Hgb 11.2 g/dL (11.0-16.0) 12/14/16 07:08 Hct 33.9 % (34.0-47.0) L 12/14/16 07:08 MCV 87.8 fL (81.0-99.0) 12/14/16 07:08 MCH 29.0 pg (27.0-31.0) 12/14/16 07:08 MCHC 33.0 g/dL (33.0-37.0) 12/14/16 07:08 RDW 14.5 % (11.5-14.5) 12/14/16 07:08 Plt Count 150 K/uL (130-400) 12/14/16 07:08 MPV 11.2 fL (7.2-11.7) 12/14/16 07:08 Neut % (Auto) 69.6 % (50.0-75.0) 12/14/16 07:08 Lymph % (Auto) 19.5 % (20.0-40.0) L 12/14/16 07:08 Wake % (Auto) 8.5 % (0.0-10.0) 12/14/16 07:08 Eos % (Auto) 1.8 % (0.0-4.0) 12/14/16 07:08 Baso % (Auto) 0.6 % (0.0-2.0) 12/14/16 07:08 Neut # 5.4 K/uL (1.8-7.0) 12/14/16 07:08 Lymph # 1.5 K/uL (1.0-4.3) 12/14/16 07:08 Wake # 0.7 K/uL (0.0-0.8) 12/14/16 07:08 Eos # 0.1 K/uL (0.0-0.7) 12/14/16 07:08 Baso # 0.0 K/uL (0.0-0.2) 12/14/16 07:08 PT 12.4 SECONDS (9.7-12.2) H 12/12/16 11:17 INR 1.1 12/12/16 11:17 APTT 33 SECONDS (21-34) 12/12/16 11:17 pO2 66 mm/Hg (30-55) H 12/11/16 21:59 VBG pH 7.37 (7.32-7.43) 12/11/16 21:59 VBG pCO2 38 mmHg (40-60) L 12/11/16 21:59 VBG HCO3 22.5 mmol/L 12/11/16 21:59 VBG Total CO2 23.2 mmol/L (22-28) 12/11/16 21:59 VBG O2 Sat (Calc) 97.1 % (40-65) H 12/11/16 21:59 VBG Base Excess -2.9 mmol/L (0.0-2.0) L 12/11/16 21:59 VBG Potassium 3.4 mmol/L (3.6-5.2) L 12/11/16 21:59 Sodium 140.0 mmol/l (132-148) 12/11/16 21:59 Chloride 115.0 mmol/L (98-107) H 12/11/16 21:59 Glucose 102 mg/dl (65-105) 12/11/16 21:59 Lactate 0.6 mmol/L (0.7-2.1) L 12/11/16 21:59 Sodium 137 mmol/L (132-148) 12/14/16 07:08 Potassium 3.2 mmol/L (3.6-5.2) L 12/14/16 07:08 Chloride 97 mmol/L (98-107) L 12/14/16 07:08 Carbon Dioxide 29 mmol/L (22-30) 12/14/16 07:08 Anion Gap 13 (10-20) 12/14/16 07:08 BUN 3 mg/dL (7-17) L 12/14/16 07:08 Creatinine 0.4 MG/DL (0.7-1.2) L 12/14/16 07:08 Est GFR ( Amer) > 60 12/14/16 07:08 Est GFR (Non-Af Amer) > 60 12/14/16 07:08 POC Glucose (mg/dL) 108 mg/dL (65-110) 12/11/16 17:43 Random Glucose 104 mg/dL (65-105) 12/14/16 07:08 Lactic Acid 0.7 mmol/L (0.7-2.1) 12/11/16 21:44 Calcium 8.1 mg/dl (8.6-10.4) L 12/14/16 07:08 Total Bilirubin 0.8 mg/dL (0.2-1.3) 12/14/16 07:08 AST 16 U/L (14-36) 12/14/16 07:08 ALT 24 U/L (9-52) 12/14/16 07:08 Alkaline Phosphatase 81 U/L (38-126) 12/14/16 07:08 Total Protein 5.9 g/dL (6.3-8.3) L 12/14/16 07:08 Albumin 3.0 g/dL (3.5-5.0) L 12/14/16 07:08 Globulin 2.9 gm/dL (2.2-3.9) 12/14/16 07:08 Albumin/Globulin Ratio 1.1 (1.0-2.1) 12/14/16 07:08 Lipase 43 U/L (23-300) 12/11/16 18:20 Beta HCG, Quant < 2.39 mIU/ML 12/11/16 18:20 Venous Blood Potassium 3.4 mmol/L (3.6-5.2) L 12/11/16 21:59 Urine Color Yellow (YELLOW) 12/11/16 23:01 Urine Clarity Clear (Clear) 12/11/16 23:01 Urine pH 5.0 (5.0-8.0) 12/11/16 23:01 Ur Specific [place] > 1.060 (1.003-1.030) H 12/11/16 23:01 Urine Protein Negative mg/dL (NEGATIVE) 12/11/16 23:01 Urine Glucose (UA) Normal mg/dL (Normal) 12/11/16 23:01 Urine Ketones Negative mg/dL (NEGATIVE) 12/11/16 23:01 Urine Blood Negative (NEGATIVE) 12/11/16 23:01 Urine Nitrate Negative (NEGATIVE) 12/11/16 23:01 Urine Bilirubin Negative (NEGATIVE) 12/11/16 23:01 Urine Urobilinogen Normal mg/dL (0.2-1.0) 12/11/16 23:01 Ur Leukocyte Esterase Neg Kathy/uL (Negative) 12/11/16 23:01 Urine WBC (Auto) < 1 /hpf (0-5) 12/11/16 17:47 Urine RBC (Auto) 1 /hpf (0-3) 12/11/16 23:01 Ur Squamous Epith Cells 1 /hpf (0-5) 12/11/16 23:01 Urine Bacteria Few (<OCC) H 12/11/16 23:01 Blood Type A POSITIVE 12/11/16 23:09 Blood Type Confirm A POSITIVE 12/11/16 23:09 Antibody Screen Negative 12/11/16 23:09 - Hospital Course Hospital Course: 51F w/ PMHx of COPD presented w/ abdominal pain. CT findings demonstrated an incarcerated ventral hernia. Patient underwent surgery on 12/11/16. She is now POD4 s/p laparoscopic incarcerated hernia repair w/ mesh placement. Patient is passing flatus and tolerating diet. Patient to follow up with Dr. Zhang in 7-10 days. Above is a brief summary of patient's hospital course for more details please refer to medical records. Discharge Exam - Head Exam Head Exam: NORMOCEPHALIC - Eye Exam Eye Exam: Normal appearance - ENT Exam ENT Exam: Mucous Membranes Moist - Respiratory Exam Respiratory Exam: NORMAL BREATHING PATTERN - Cardiovascular Exam Cardiovascular Exam: +S1, +S2 - GI/Abdominal Exam GI & Abdominal Exam: Soft, Tenderness Additional comments: mild tenderness along incision sites - Neurological Exam Neurological exam: Alert, Oriented x3 - Psychiatric Exam Psychiatric exam: Normal Mood - Skin Skin Exam: Dry, Intact, Warm Discharge Plan - Follow Up Plan Condition: GOOD Disposition: HOME/ ROUTINE Instructions: Open Herniorrhaphy (DC), Laparoscopic Herniorrhaphy (DC), Inguinal Hernia (DC), Acute Abdominal Pain (DC), Acute Abdominal Pain (GEN) Additional Instructions: Keep dressings clean and dry. You may spot bathe until 5 days after your surgery. You may remove band aids 5 days after your surgery. After you remove the band aids, you may shower, but do not take a bath or swim for 2 weeks. Leave steri strips in place. They will come off on their own over time. Avoid heavy lifting for 4 weeks
[2016-12-15 09:35] VITALS: BP 127/82; PULSE 80; TEMP 98.5; O2SAT 96
[2016-12-15] MEDS: Enoxaparin 40 mg Syringe SC SCH (10:07)
[2016-12-15] MEDS: Potassium Chloride 20 mEq ER Tab PO SCH (10:07)
--- NOTE | 2016-12-15 18:19 | CARD ---
APPROVED REPORT EKG Measurement Heart [id number] VA [id number] <Conclusion> Sinus bradycardia Nonspecific T wave abnormality Abnormal ECG
== END 2016-12-15 13:30 | disposition home or self-care (01) | DRG 585 ==
LOC: C.ER 17:32 → C.9E 21:49 → C.3T 22:26
PROVIDERS: ADMIT Surgery Surgical Critical Care; ATTEND Surgery Surgical Critical Care
PROC: 0DQ84ZZ Repair Small Intestine, Percutaneous Endoscopic Approach (ICD-10-PCS; 2016-12-12)
PROC: 0DNW4ZZ Release Peritoneum, Percutaneous Endoscopic Approach (ICD-10-PCS; 2016-12-12)
PROC: 0WCJ4ZZ Extirpation of Matter from Pelvic Cavity, Percutaneous Endoscopic Approach (ICD-10-PCS; 2016-12-12)
PROC: 3E0M05Z Introduction of Adhesion Barrier into Peritoneal Cavity, Open Approach (ICD-10-PCS; 2016-12-12)
PROC: 0WUF4JZ Supplement Abdominal Wall with Synthetic Substitute, Percutaneous Endoscopic Approach (ICD-10-PCS; principal; 2016-12-12 12:00)
DX: K43.0 Incisional hernia with obstruction, without gangrene (principal); K91.871 Postprocedural hematoma of a digestive system organ or structure following other procedure; E66.01 Morbid (severe) obesity due to excess calories; J44.9 Chronic obstructive pulmonary disease, unspecified; J40 Bronchitis, not specified as acute or chronic; F17.210 Nicotine dependence, cigarettes, uncomplicated; K66.0 Peritoneal adhesions (postprocedural) (postinfection)

== ENCOUNTER 2017-06-20 12:46 | Emergency (ER) | payer OTHER ==
[2017-06-20 13:12] VITALS: BP 135/85; PULSE 66; RESP 20; TEMP 98; O2SAT 97
[2017-06-20] MEDS ORDERED: Lidocaine 1% Inj (20ml) ONE (14:01)
--- NOTE | 2017-06-20 14:19 | C.PDOC ---
History Of Present Illness 51 y/o female presents to ED for evaluation of bump to upper back developed 1 week ago. Patient states yesterday when lying down she felt "pinching on her back" and pain was worse which prompted visit to ED today. Patient denies fever , chills, nausea, vomiting, weakness, numbness or any other complaints at this time. Chief Complaint (Nursing): Abnormal Skin Integrity History Per: Patient History/Exam Limitations: no limitations Onset/Duration Of Symptoms: Days Current Symptoms Are (Timing): Still Present Quality Of Symptoms: Painful Past Medical History Reviewed: Historical Data, Nursing Documentation, Vital Signs Vital Signs: Last Vital Signs Temp 98 F 06/20/17 13:09 Pulse 66 06/20/17 13:09 Resp 20 06/20/17 13:09 BP 135/85 06/20/17 13:09 Pulse Ox 97 06/20/17 14:29 - Medical History PMH: Anemia, Asthma Surgical History: No Surg Hx - [facility] Procedures EXTIRPATION OF MATTER FROM PELVIC CAVITY, PERC ENDO APPROACH (12/11/16) INTRODUCE ADHESION BARRIER IN PERITON CAV, OPEN (12/11/16) RELEASE PERITONEUM, PERCUTANEOUS ENDOSCOPIC APPROACH (12/11/16) REPAIR SMALL INTESTINE, PERCUTANEOUS ENDOSCOPIC APPROACH (12/11/16) SUPPLEMENT ABDOMINAL WALL WITH SYNTH SUB, PERC ENDO APPROACH (12/11/16) Family History: States: No Known Family Hx - Social History Hx Tobacco Use: Yes Hx Alcohol Use: No Hx Substance Use: No - Immunization History Hx Tetanus Toxoid Vaccination: No Hx Influenza Vaccination: No Hx Pneumococcal Vaccination: No Review Of Systems Constitutional: Negative for: Fever, Chills Gastrointestinal: Negative for: Nausea, Vomiting Skin: Positive for: Other (abscess to back). 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 ( +)fluctuance (+)surrounding erythema) Head: Atraumatic, Normacephalic Oral Mucosa: Moist Neck: Normal ROM, Supple Cardiovascular: Rhythm Regular Respiratory: Normal Breath Sounds, No Rales, No Rhonchi, No Wheezing Gastrointestinal/Abdominal: Soft, No Tenderness, No Guarding, No Rebound Neurological/Psych: Oriented x3 ED Course And Treatment O2 Sat by Pulse Oximetry: 97 (RA) Pulse Ox Interpretation: Normal - Incision & Drainage Of Abscess Anesthesia: Lidocaine 1% Prep Used: Sterile Water, Betadine Procedure: Incised W/Scalpel Blade#: (11), Drained Pus, Irrigated Cavity W/ Saline, Packed W/Gauze, Cultures Obtained And Sent To Lab Medical Decision Making Medical Decision Making: Impression: Back abscess Plan: I&D procedure Progress: Patient tolerate procedure well, packed and advised follow up in 2 days for packing removal Disposition Doctor Will See Patient In The: ED - Disposition Disposition: HOME/ ROUTINE Disposition Time: 14:18 Condition: GOOD Prescriptions: Sulfamethoxazole/Trimethoprim [Bactrim DS 800 mg-160 mg] 1 tab PO BID #10 tab Instructions: Abscess (ED) Forms: [facility] (Guinean) - Clinical Impression Clinical Impression: Abscess - Scribe Statement The provider has reviewed the documentation as recorded by the Vijiibrosaura Jackson All medical record entries made by the Vijiibrosaura were at my direction and personally dictated by me. I have reviewed the chart and agree that the record accurately reflects my personal performance of the history, physical exam, medical decision making, and the department course for this patient. I have also personally directed, reviewed, and agree with the discharge instructions and disposition.
[2017-06-20] MEDS ORDERED: Tmp-Smz 800 mg-160 mg DS Tab PO STA (14:20)
[2017-06-20] MEDS ORDERED: Oxycodone/Acetaminophen 5/325 mg Tab PO STA (14:21)
[2017-06-20] MEDS ORDERED: Tmp-Smz 800 mg-160 mg DS Tab ONE (14:31)
[2017-06-20] MEDS ORDERED: Oxycodone/Acetaminophen 5/325 mg Tab ONE (14:31)
== END 2017-06-20 14:41 | disposition home or self-care (01) ==
LOC: C.ER 12:46
DX: L02.212 Cutaneous abscess of back [any part, except buttock and flank] (principal)

== ENCOUNTER 2017-06-22 13:09 | Emergency (ER) | payer OTHER ==
[2017-06-22 13:29] VITALS: RESP 16; TEMP 98.4; O2SAT 97
--- NOTE | 2017-06-22 13:58 | C.PDOC ---
History Of Present Illness 51-year-old female comes in for scheduled wound check after abscess I&D two days ago in ED. Patient denies any fever, draining, or pain. Time Seen by Provider: 06/22/17 13:25 Chief Complaint (Nursing): Abnormal Skin Integrity History Per: Patient History/Exam Limitations: no limitations Past Medical History Reviewed: Historical Data, Nursing Documentation, Vital Signs Vital Signs: Last Vital Signs Temp 98.4 F 06/22/17 14:05 Pulse 68 06/22/17 14:05 Resp 16 06/22/17 14:05 BP 130/83 06/22/17 14:05 Pulse Ox 97 06/22/17 14:13 - Medical History PMH: Anemia, Asthma - [facility] Procedures EXTIRPATION OF MATTER FROM PELVIC CAVITY, PERC ENDO APPROACH (12/11/16) INTRODUCE ADHESION BARRIER IN PERITON CAV, OPEN (12/11/16) RELEASE PERITONEUM, PERCUTANEOUS ENDOSCOPIC APPROACH (12/11/16) REPAIR SMALL INTESTINE, PERCUTANEOUS ENDOSCOPIC APPROACH (12/11/16) SUPPLEMENT ABDOMINAL WALL WITH SYNTH SUB, PERC ENDO APPROACH (12/11/16) Family History: States: No Known Family Hx - Social History Hx Tobacco Use: Yes Hx Alcohol Use: No Hx Substance Use: No - Immunization History Hx Tetanus Toxoid Vaccination: No Hx Influenza Vaccination: No Hx Pneumococcal Vaccination: No Review Of Systems Constitutional: Negative for: Fever Gastrointestinal: Negative for: Nausea, Vomiting Neurological: Negative for: Weakness Physical Exam - Physical Exam Appears: Well, Non-toxic, No Acute Distress Skin: Normal Color, Dry, Other (Rightg Mid back small open wound with sterile packing. No significant discharge, no fluctuance, no proximal streaking.) ED Course And Treatment O2 Sat by Pulse Oximetry: 97 (RA) Pulse Ox Interpretation: Normal Progress Note: Wound revised, packing removed, wound cleaned, irrigated w/ saline water, cover with sterile dressing. No flactualnce, no cellulitis. Pt advised on wound care. Advise dto cont. abx as intiated. ref. to f/u with PMD in 2 days for re-eavl. return to ED if any worsening or new changes. Disposition Counseled Patient/Family Regarding: Diagnosis - Disposition Referrals: [facility] [Outside] Disposition: HOME/ ROUTINE Disposition Time: 13:57 Condition: STABLE Instructions: Abscess Follow-up (ED) Forms: [facility] (Kazakh), Work Excuse - Clinical Impression Clinical Impression: Abscess - Scribe Statement The provider has reviewed the documentation as recorded by the Scribe (Jyothi Marks) All medical record entries made by the Scribe were at my direction and personally dictated by me. I have reviewed the chart and agree that the record accurately reflects my personal performance of the history, physical exam, medical decision making, and the department course for this patient. I have also personally directed, reviewed, and agree with the discharge instructions and disposition.
[2017-06-22 14:06] VITALS: BP 130/83; PULSE 68
== END 2017-06-22 14:08 | disposition home or self-care (01) ==
LOC: C.ER 13:09
DX: L02.212 Cutaneous abscess of back [any part, except buttock and flank] (principal)

== ENCOUNTER 2017-11-27 14:43 | Emergency (ER) | payer OTHER ==
[2017-11-27 15:25] VITALS: BMI 38.9
[2017-11-27] MEDS ORDERED: Albuterol-Ipratrop 3 mg / 0.5 (3 ml) UD ONE (16:02)
[2017-11-27] MEDS ORDERED: Sodium Chloride 0.9% 1,000 ML IV ONE (16:16)
--- NOTE | 2017-11-27 16:16 | C.PDOC ---
History Of Present Illness 52 year old female with PMHx of bronchitis and smoking history presents to the ER complaining of shortness of breath for 3 days. Patient denies fever. She denies history of asthma. No Neb/MDI at home. She also complains of left upper back pain worse with breathing. HPI limited due to clinical condition. LIMTIED DUE TO CLIN COND SOB X 3 DAYS. NO FEVER. HO BRONCHITIS, +SMOKER. DENIES HO ASTHMA, NO NEB /MDI @ HOME. ALSO CO L UPPER BACK PAIN WORSE W BREATHING. ROS LIMITED EXAM MOD DIST MILD TOX SP DUONEB X 1 LUNGS B/L EXP WHEEZE RETRACTIONS EXP WHEEZE 1-2 WORD SENTENCES CV RRR TACHY WARM DRY NO EDEMA REMAINDER NEG Time Seen by Provider: 11/27/17 16:15 Chief Complaint (Nursing): Shortness Of Breath History Per: Patient History/Exam Limitations: clinical condition Onset/Duration Of Symptoms: Days Current Symptoms Are (Timing): Still Present Past Medical History Reviewed: Historical Data, Nursing Documentation, Vital Signs Vital Signs: Last Vital Signs Temp 99.1 F 11/27/17 15:28 Pulse 84 11/27/17 15:28 Resp 22 11/27/17 15:28 BP 120/84 11/27/17 15:28 Pulse Ox 99 11/27/17 17:08 - Medical History PMH: Anemia, Asthma, Bronchitis Other Surgeries: Hx of surgeries - [facility] Procedures EXTIRPATION OF MATTER FROM PELVIC CAVITY, PERC ENDO APPROACH (12/11/16) INTRODUCE ADHESION BARRIER IN PERITON CAV, OPEN (12/11/16) RELEASE PERITONEUM, PERCUTANEOUS ENDOSCOPIC APPROACH (12/11/16) REPAIR SMALL INTESTINE, PERCUTANEOUS ENDOSCOPIC APPROACH (12/11/16) SUPPLEMENT ABDOMINAL WALL WITH SYNTH SUB, PERC ENDO APPROACH (12/11/16) Family History: States: No Known Family Hx - Social History Hx Tobacco Use: Yes Hx Alcohol Use: No Hx Substance Use: No - Immunization History Hx Tetanus Toxoid Vaccination: No Hx Influenza Vaccination: No Hx Pneumococcal Vaccination: No Review Of Systems Except As Marked, All Systems Reviewed And Found Negative. (ROS limited due to patient's clinical condition) Constitutional: Negative for: Fever Respiratory: Positive for: Shortness of Breath Musculoskeletal: Positive for: Back Pain (Left upper ) Physical Exam - Physical Exam Appears: Toxic (Mild toxic status post Duoneb x 1), Other (Moderate distress ) Skin: Normal Color, Warm, Dry Head: Atraumatic, Normacephalic Eye(s): bilateral: Normal Inspection Nose: Normal Oral Mucosa: Moist Cardiovascular: Rhythm Regular, No Edema, Other (Tachycardic ) Respiratory: Wheezing (B/L EXP wheeze retractions ), Other (1-2 word sentences ) Gastrointestinal/Abdominal: Soft, No Tenderness, No Distention, No Guarding ED Course And Treatment - Laboratory Results Result Diagrams: 11/27/17 16:41 11/27/17 16:41 ECG: Interpreted By Me ECG Rhythm: Sinus Rhythm ECG Interpretation: Normal Rate From EC O2 Sat by Pulse Oximetry: 99 (RA) Pulse Ox Interpretation: Normal - Radiology CXR: Interpreted by Me, Viewed By Me CXR Interpretation: Yes: No Acute Disease Progress Note: Patient assessed and examined. CXR ordered and interpreted by me - negative. EKG ordered - normal. Patient given Toradol 30mg IVP, fluids, Brethine INJ, and Neb treatment. Progress - Re-Evaluation Re-evaluation Note: 11/27/17 18:26 CTA B/L NO W/R/R FEELS BETTER, WISHES DC HOME - Data Reviewed Data Reviewed: Lab, Diagnostic imaging, Old records - Critical Care Citical Care: Excluding Proc Time Critical Care Time: 90 minutes Disposition Counseled Patient/Family Regarding: Studies Performed, Diagnosis, Need For Followup, Rx Given, Smoking Cessation - Disposition Referrals: YOUR,PMD [Other] Disposition: HOME/ ROUTINE Disposition Time: 18:26 Condition: IMPROVED Prescriptions: Albuterol HFA [Ventolin HFA 90 mcg/actuation (8 g)] 1 puff IH Q4 #1 inhaler Azithromycin 250 mg PO DAILY #6 tab Benzonatate [Tessalon Perles] 200 mg PO TID PRN #15 sgl PRN Reason: Cough Ibuprofen [Motrin] 600 mg PO Q6 #30 tab predniSONE [Prednisone] 60 mg PO DAILY #12 tab Instructions: Acute Bronchitis, Adult (DC), Quitting Smoking Forms: [facility] (Citizen Of [place]), Work Excuse - Clinical Impression Clinical Impression: Asthma with bronchitis - Scribe Statement The provider has reviewed the documentation as recorded by the Scribe Leida Vaughan All medical record entries made by the Scribe were at my direction and personally dictated by me. I have reviewed the chart and agree that the record accurately reflects my personal performance of the history, physical exam, medical decision making, and the department course for this patient. I have also personally directed, reviewed, and agree with the discharge instructions and disposition.
[2017-11-27] MEDS ORDERED: Magnesium Sulfate 1 gm in D5W 1 GM/100 ML BAG IV ONE (16:17)
[2017-11-27] MEDS ORDERED: Magnesium Sulfate 1 gm in D5W 1 GM/100 ML BAG IVPB ONE (16:19)
[2017-11-27 16:44] LABS: BASO # 0.1 K/uL (0.0-0.2); BASO % 1.3 % (0.0-2.0); EOS # 0.3 K/uL (0.0-0.7); EOS % 5.2 % (0.0-4.0); HEMOGLOBIN 13.1 g/dL (11.0-16.0); LYMPH # 1.6 K/uL (1.0-4.3); LYMPH % 27.2 % (20.0-40.0); MEAN CELL VOLUME 85.8 fL (81.0-99.0); MEAN CORPUSCULAR HEMOGLOBIN 28.6 pg (27.0-31.0); MEAN CORPUSCULAR HGB CONC 33.3 g/dL (33.0-37.0); MEAN PLATELET VOLUME 10.1 fL (7.2-11.7); MONO # 0.6 K/uL (0.0-0.8); MONO % 11.1 % (0.0-10.0); NEUT # 3.2 K/uL (1.8-7.0); NEUT % 55.2 % (50.0-75.0); NRBC % 0.3 % (0.0-2.0); RBC 4.58 Mil/uL (3.80-5.20); RED CELL DISTRIBUTION WIDTH 15.1 % (11.5-14.5); WHITE BLOOD COUNT 5.8 K/uL (4.8-10.8)
[2017-11-27 16:55] LABS: ALB/GLOB RATIO 1.3 (1.0-2.1); ALBUMIN 4.5 g/dL (3.5-5.0); ALT/SGPT 25 U/L (9-52); AST/SGOT 15 U/L (14-36); BLOOD UREA NITROGEN 8 mg/dL (7-17); CALCIUM 9.4 mg/dl (8.6-10.4); GFR AFRICAN-AMERICAN > 60; GFR NON-AFRICAN AMERICAN > 60
[2017-11-27 17:04] LABS: B-TYPE NATRIURETIC PEPTIDE 84.6 pg/mL (0-900)
[2017-11-27 17:35] LABS: D DIMER < 200 ng/mlDDU (0-243); INR 1.1; PARTIAL THROMBOPLASTIN TIME 35 SECONDS (21-34); PROTHROMBIN TIME 11.6 SECONDS (9.7-12.2)
[2017-11-27] MEDS ORDERED: Morphine 4 MG/ML VIAL ONE (17:41)
[2017-11-27] MEDS ORDERED: Oxycodone/Acetaminophen 5/325 mg Tab PO STA (18:26)
--- NOTE | 2017-11-27 18:33 | RAD ---
Chest x-ray single frontal view History: Shortness of breath. Comparison: 12/11/2016 Findings: Mild venous congestion. Tortuous ectatic aorta. Mild cardiomegaly. Impression: Mild venous congestion. Tortuous ectatic aorta. Mild cardiomegaly.
[2017-11-27] MEDS ORDERED: Oxycodone/Acetaminophen 5/325 mg Tab ONE (18:45)
[2017-11-27 19:04] VITALS: BP 126/73; PULSE 76; RESP 18; TEMP 98; O2SAT 98
== END 2017-11-27 19:04 | disposition home or self-care (01) ==
LOC: C.ER 14:43
DX: J45.909 Unspecified asthma, uncomplicated (principal); Z72.0 Tobacco use
CPT/HCPCS: 71045; 80053; 83880; 85025; 85378; 85610; 85730; 93005; 96365; 96372; 96375; 99284; J1885; J2270; J2930; J3105; J3475; J7030

== ENCOUNTER 2017-12-05 15:27 | Emergency (ER) | payer OTHER ==
[2017-12-05 15:27] VITALS: BMI 38.9
[2017-12-05 15:35] VITALS: PULSE 80; RESP 18; O2SAT 98
--- NOTE | 2017-12-05 15:51 | C.PDOC ---
History Of Present Illness 52 y/o female brought to ED by EMS s/p tripping on uneven street pavement and falling forward hitting knees, hands and left shoulder. Patient c/o pain to areas injured and denies loc, headache, numbness or any other complaints at this time. Time Seen by Provider: 12/05/17 15:35 Chief Complaint (Nursing): Lower Extremity Problem/Injury History Per: Patient History/Exam Limitations: no limitations Onset/Duration Of Symptoms: Hrs Current Symptoms Are (Timing): Still Present Past Medical History Reviewed: Historical Data, Nursing Documentation, Vital Signs Vital Signs: Last Vital Signs Temp 97.4 F L 12/05/17 17:20 Pulse 80 12/05/17 17:20 Resp 18 12/05/17 17:20 BP 125/81 12/05/17 17:20 Pulse Ox 98 12/05/17 17:21 - Medical History PMH: Anemia, Asthma, Bronchitis Surgical History: No Surg Hx - [facility] Procedures EXTIRPATION OF MATTER FROM PELVIC CAVITY, PERC ENDO APPROACH (12/11/16) INTRODUCE ADHESION BARRIER IN PERITON CAV, OPEN (12/11/16) RELEASE PERITONEUM, PERCUTANEOUS ENDOSCOPIC APPROACH (12/11/16) REPAIR SMALL INTESTINE, PERCUTANEOUS ENDOSCOPIC APPROACH (12/11/16) SUPPLEMENT ABDOMINAL WALL WITH SYNTH SUB, PERC ENDO APPROACH (12/11/16) Family History: States: No Known Family Hx - Social History Hx Tobacco Use: Yes Hx Alcohol Use: No Hx Substance Use: No - Immunization History Hx Tetanus Toxoid Vaccination: No Hx Influenza Vaccination: No Hx Pneumococcal Vaccination: No Review Of Systems Gastrointestinal: Negative for: Nausea, Vomiting Musculoskeletal: Positive for: Shoulder Pain, Leg Pain. Negative for: Back Pain Skin: Negative for: Rash Neurological: Negative for: Headache Physical Exam - Physical Exam Appears: Non-toxic, No Acute Distress Skin: Warm, Dry, No Rash, Ecchymosis (to palm of hands) Head: Atraumatic, Normacephalic Oral Mucosa: Moist Neck: Supple Back: Normal Inspection, No Vertebral Tenderness, No Paraspinal Tenderness Extremity: Tenderness (left anterior shoulder and bilateral knees), Capillary Refill (<2 seconds), No Deformity, Swelling (minimal to b/l knees), No Other ( effusion or erythema) Extremity: Bilateral: Limited ROM To Joint (knees and shoulder) Neurological/Psych: Oriented x3, Normal Motor, Normal Sensation Gait: Unable To Assess ED Course And Treatment O2 Sat by Pulse Oximetry: 98 (RA) Pulse Ox Interpretation: Normal - Other Rad Knee b/l X-Ray: Interpreted by Me, Viewed By Me Interpretation: no fx or dislocation Left shoulder X-Ray: Interpreted by Me, Viewed By Me Interpretation: no fx or dislocation Progress Note: Motrin administered. Xray ordered of shoulder and bilateral knees. XR reviewed ,pt is ambulatory in ED with steady gait. ALDEN wrap applied to both knees and pt reports some pain relief prior to discharge Reevaluation Time: 17:25 Reassessment Condition: Improved Disposition Counseled Patient/Family Regarding: Studies Performed, Diagnosis, Need For Followup, Rx Given - Disposition Disposition: HOME/ ROUTINE Disposition Time: 17:16 Condition: STABLE Additional Instructions: Apply ICE to area / Leg elevation Take advilor tylenol for pain Return to ER if worse Instructions: Contusion (DC), Shoulder Sprain (DC) Forms: [facility] (Swazi), Work Excuse - Clinical Impression Clinical Impression: Sprain of shoulder, left, Contusion, knee - 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 - Scribe Statement The provider has reviewed the documentation as recorded by the Vijiibrosaura Jackson All medical record entries made by the Charlotte were at my direction and personally dictated by me. I have reviewed the chart and agree that the record accurately reflects my personal performance of the history, physical exam, medical decision making, and the department course for this patient. I have also personally directed, reviewed, and agree with the discharge instructions and disposition.
--- NOTE | 2017-12-05 16:46 | RAD ---
Date of service: 12/05/2017 PROCEDURE: Radiographs of the Left Shoulder HISTORY: pain , fall COMPARISON: No prior. FINDINGS: BONES: No acute fracture. JOINTS: Mild acromioclavicular joint space narrowing. SOFT TISSUES: Normal. OTHER FINDINGS: None. IMPRESSION: No demonstrated fracture or dislocation.
--- NOTE | 2017-12-05 16:49 | RAD ---
Date of service: 12/05/2017 PROCEDURE: Bilateral Knee Radiographs. HISTORY: pain, fall on knees COMPARISON: Right knee radiographs dated 10/27/2012. No prior imaging of the left knee. FINDINGS: BONES: Right Knee: No acute fracture. Left Knee: No acute fracture. JOINTS: Right Knee: Tricompartmental narrowing with degenerative spurring. Left knee: Tricompartmental narrowing with degenerative spurring. SOFT TISSUES: Right Knee: Normal. Left Knee: Normal. JOINT EFFUSION: Right Knee: None. Left Knee: None. OTHER FINDINGS: None. IMPRESSION: No demonstrated fracture or dislocation. Bilateral knee osteoarthritic changes.
[2017-12-05 17:22] VITALS: BP 125/81; TEMP 97.4
== END 2017-12-05 17:30 | disposition home or self-care (01) ==
LOC: C.ER 15:27
DX: S43.402A Unspecified sprain of left shoulder joint, initial encounter (principal); S80.02XA Contusion of left knee, initial encounter; W01.0XXA Fall on same level from slipping, tripping and stumbling without subsequent striking against object, initial encounter; Y92.410 Unspecified street and highway as the place of occurrence of the external cause

== ENCOUNTER 2018-05-21 10:55 | Emergency (ER) | payer OTHER ==
[2018-05-21] MEDS ORDERED: Albuterol-Ipratrop 3 mg / 0.5 (3 ml) UD ONE ×2 (11:11→11:45)
[2018-05-21 11:12] VITALS: BMI 36.7
[2018-05-21 11:16] VITALS: O2SAT 97
[2018-05-21] MEDS ORDERED: Albuterol-Ipratrop 3 mg / 0.5 (3 ml) UD INH STA (11:19)
[2018-05-21] MEDS: Albuterol-Ipratrop 3 mg / 0.5 (3 ml) UD IH SCH ×2 (11:45→11:56)
[2018-05-21 12:00] LABS: BASO # 0.1 K/uL (0.0-0.2); EOS # 0.2 K/uL (0.0-0.7); EOS % 4.7 % (0.0-4.0); HEMOGLOBIN 12.9 g/dL (11.0-16.0); LYMPH # 2.4 K/uL (1.0-4.3); LYMPH % 62.3 % (20.0-40.0); MEAN CELL VOLUME 88.8 fL (81.0-99.0); MEAN CORPUSCULAR HEMOGLOBIN 29.4 pg (27.0-31.0); MEAN CORPUSCULAR HGB CONC 33.1 g/dL (33.0-37.0); MEAN PLATELET VOLUME 9.4 fL (7.2-11.7); MONO # 0.3 K/uL (0.0-0.8); NEUT # 0.8 K/uL (1.8-7.0); NRBC % 0.1 % (0.0-2.0); RBC 4.41 Mil/uL (3.80-5.20); RED CELL DISTRIBUTION WIDTH 14.8 % (11.5-14.5); WHITE BLOOD COUNT 3.8 K/uL (4.8-10.8)
--- NOTE | 2018-05-21 12:19 | RAD ---
HISTORY: sob COMPARISON: Chest x-ray performed 11/27/17 TECHNIQUE: Chest PA and lateral FINDINGS: Examination limited by habitus. LUNGS: No focal consolidation. Please note that chest x-ray has limited sensitivity for the detection of pulmonary masses. PLEURA: No significant pleural effusion identified. No definite pneumothorax . CARDIOVASCULAR: Heart size appears within normal limits. Atherosclerotic calcifications. OSSEOUS STRUCTURES: Mild degenerative changes. VISUALIZED UPPER ABDOMEN: Unremarkable. OTHER FINDINGS: None. IMPRESSION: No focal consolidation.
[2018-05-21 12:20] LABS: BLOOD UREA NITROGEN 9 mg/dL (7-17); CALCIUM 7.7 mg/dl (8.6-10.4); GFR NON-AFRICAN AMERICAN > 60
--- NOTE | 2018-05-21 12:30 | C.PDOC ---
History Of Present Illness 52 years old female presents to ED for complaints of shortness of breath associated with chills, subjective fever, vomiting, upper back pain, and cough that began 5 days ago. Patient describes cough as "feels like a needle in my leslie gs everytime I cough." Denies diarrhea, headache, neck pain, dizziness, or any other complaints. Patient reports taking tharaflu with no relief. Patient also states that she smokes cigarettes. Time Seen by Provider: 05/21/18 11:23 Chief Complaint (Nursing): Shortness Of Breath History Per: Patient History/Exam Limitations: no limitations Onset/Duration Of Symptoms: Hrs Current Symptoms Are (Timing): Still Present Current Respiratory Medications: See Home Med List Associated Symptoms: Fever, Chills. denies: Dizziness Recent travel outside of the [place]: No Past Medical History Reviewed: Historical Data, Nursing Documentation, Vital Signs Vital Signs: Last Vital Signs Temp 97.4 F L 05/21/18 11:12 Pulse 70 05/21/18 11:12 Resp 24 05/21/18 11:16 BP 124/88 05/21/18 11:12 Pulse Ox 97 05/21/18 11:16 - Medical History PMH: Anemia, Asthma, Bronchitis, COPD - [facility] Procedures EXTIRPATION OF MATTER FROM PELVIC CAVITY, PERC ENDO APPROACH (12/11/16) INTRODUCE ADHESION BARRIER IN PERITON CAV, OPEN (12/11/16) RELEASE PERITONEUM, PERCUTANEOUS ENDOSCOPIC APPROACH (12/11/16) REPAIR SMALL INTESTINE, PERCUTANEOUS ENDOSCOPIC APPROACH (12/11/16) SUPPLEMENT ABDOMINAL WALL WITH SYNTH SUB, PERC ENDO APPROACH (12/11/16) Family History: States: Unknown Family Hx - Social History Hx Tobacco Use: Yes Hx Alcohol Use: No Hx Substance Use: No - Immunization History Hx Tetanus Toxoid Vaccination: No Hx Influenza Vaccination: No Hx Pneumococcal Vaccination: No Review Of Systems Constitutional: Positive for: Fever, Chills Respiratory: Positive for: Cough, Shortness of Breath Gastrointestinal: Positive for: Vomiting. Negative for: Abdominal Pain, Diarrhea Musculoskeletal: Positive for: Back Pain (Upper back ) Skin: Negative for: Rash Neurological: Negative for: Weakness, Numbness, Headache, Dizziness Physical Exam - Physical Exam Appears: Non-toxic, In Acute Distress (Mild respiratory ), Other (hoarseness in voice ) Skin: Normal Color, Warm, Dry, No Rash Head: Atraumatic, Normacephalic Eye(s): bilateral: Normal Inspection, PERRL, EOMI Oral Mucosa: Moist Throat: Normal, No Erythema, No Exudate, No Drooling Neck: Normal ROM, Supple Chest: Symmetrical, No Tenderness Cardiovascular: Rhythm Regular Respiratory: No Rales, No Rhonchi, Wheezing, Other Gastrointestinal/Abdominal: Bowel Sounds (Active ), Soft, No Tenderness Back: Normal Inspection, No CVA Tenderness, No Vertebral Tenderness Extremity: Normal ROM Extremity: Bilateral: Atraumatic, Normal Color And Temperature, Normal ROM Pulses: Left Radial: Normal, Right Radial: Normal Neurological/Psych: Oriented x3, Normal Speech Gait: Steady ED Course And Treatment - Laboratory Results Result Diagrams: 05/21/18 11:54 05/21/18 11:54 O2 Sat by Pulse Oximetry: 97 (RA) Pulse Ox Interpretation: Normal - Other Rad CXR X-Ray: Viewed By Me, Read By Radiologist Interpretation: HISTORY: sob. COMPARISON: Chest x-ray performed 11/27/17. TECHNIQUE: Chest PA and lateral. FINDINGS: Examination limited by habitus. LUNGS: No focal consolidation. Please note that chest x-ray has limited sensitivity for the detection of pulmonary masses. PLEURA: No significant pleural effusion identified. No definite pneumothorax . CARDIOVASCULAR: Heart size appears within normal limits. Atherosclerotic calcifications. OSSEOUS STRUCTURES: Mild degenerative changes. VISUALIZED UPPER ABDOMEN: Unremarkable. OTHER FINDINGS: None. IMPRESSION: No focal consolidation. Medical Decision Making Medical Decision Making: Impression: SOB Plan: * Solu-Medrol * Albuerol nebulizer Treatment/peak flow * Blood work * CXR Progress: CXR shows no infiltrate. Labs normal. On re-eval, the patient was sitting upright on stretcher in no distress. She reported feeling better and lung sounds improved. Explain labwork and XRay show no pneumonia or findings of sepsis. Patient feels comfortable going home and will be discharged Disposition Counseled Patient/Family Regarding: Diagnosis, Need For Followup, Rx Given - Disposition Referrals: Rickey Plascencia MD [Medical Doctor] - Disposition: HOME/ ROUTINE Disposition Time: 12:57 Condition: STABLE Additional Instructions: Follow up with your primary medical doctor in 2-5 days for further evaluation. Take medications as prescribed. Return to the emergency department at any time if symptoms persist or worsen. 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 - Scribe Statement The provider has reviewed the documentation as recorded by the Vijiibrosaura Dietrich All medical record entries made by the Vijiibrosaura were at my direction and personally dictated by me. I have reviewed the chart and agree that the record accurately reflects my personal performance of the history, physical exam, medical decision making, and the department course for this patient. I have also personally directed, reviewed, and agree with the discharge instructions and disposition.
[2018-05-21 13:34] VITALS: BP 121/78; PULSE 74; RESP 20; TEMP 98.4
== END 2018-05-21 13:34 | disposition home or self-care (01) ==
LOC: C.ER 10:55
DX: J44.0 Chronic obstructive pulmonary disease with (acute) lower respiratory infection (principal); F17.210 Nicotine dependence, cigarettes, uncomplicated
CPT/HCPCS: 71046; 80048; 85025; 96374; 99284; J2930

== ENCOUNTER 2018-08-09 11:19 | Emergency (ER) | payer OTHER ==
[2018-08-09 11:19] VITALS: BMI 36.7
[2018-08-09 11:44] VITALS: RESP 20
--- NOTE | 2018-08-09 12:54 | C.PDOC ---
History Of Present Illness 52 y/o female presents to the ED complaining of worsened left knee pain for 2 days. No known trauma or recent injury. Patient reports hx of chronic left knee pain and is s/p arthroscopic surgery to the knee several years ago. She reports taking Tylenol PM and Motrin with limited relief. Otherwise patient denies any numbness, tingling, extremity weakness, or other injury. Time Seen by Provider: 08/09/18 11:39 Chief Complaint (Nursing): Lower Extremity Problem/Injury History Per: Patient History/Exam Limitations: no limitations Onset/Duration Of Symptoms: Days (x 2) Current Symptoms Are (Timing): Still Present Past Medical History Reviewed: Historical Data, Nursing Documentation, Vital Signs Vital Signs: Last Vital Signs Temp 98.4 F 08/09/18 11:43 Pulse 69 08/09/18 11:43 Resp 20 08/09/18 11:43 BP 124/85 08/09/18 11:43 Pulse Ox 97 08/09/18 11:43 - Medical History PMH: Anemia, Asthma, Bronchitis, COPD, Chronic Pain (left knee) Other Surgeries: Arthroscopic left knee surgery - [facility] Procedures EXTIRPATION OF MATTER FROM PELVIC CAVITY, PERC ENDO APPROACH (12/11/16) INTRODUCE ADHESION BARRIER IN PERITON CAV, OPEN (12/11/16) RELEASE PERITONEUM, PERCUTANEOUS ENDOSCOPIC APPROACH (12/11/16) REPAIR SMALL INTESTINE, PERCUTANEOUS ENDOSCOPIC APPROACH (12/11/16) SUPPLEMENT ABDOMINAL WALL WITH SYNTH SUB, PERC ENDO APPROACH (12/11/16) Family History: States: Unknown Family Hx - Social History Hx Tobacco Use: Yes Hx Alcohol Use: No Hx Substance Use: No - Immunization History Hx Tetanus Toxoid Vaccination: No Hx Influenza Vaccination: No Hx Pneumococcal Vaccination: No Review Of Systems Constitutional: Negative for: Fever, Chills Cardiovascular: Negative for: Chest Pain Respiratory: Negative for: Shortness of Breath Musculoskeletal: Positive for: Leg Pain (left knee) Neurological: Negative for: Weakness, Numbness, Incoordination Physical Exam - Physical Exam Appears: Non-toxic, No Acute Distress Skin: Warm, Dry, No Rash Head: Atraumatic, Normacephalic Eye(s): bilateral: Normal Inspection Neck: Normal ROM Chest: Symmetrical Respiratory: No Accessory Muscle Use Extremity: Normal ROM, Tenderness (mild left knee tenderness), No Deformity, No Swelling Pulses: Left Dorsalis Pedis: Normal, Right Dorsalis Pedis: Normal Neurological/Psych: Oriented x3, Normal Motor, Normal Sensation Gait: Steady ED Course And Treatment O2 Sat by Pulse Oximetry: 97 (RA) Pulse Ox Interpretation: Normal - Other Rad XR L Knee X-Ray: Interpreted by Me, Viewed By Me Interpretation: (-) acute fracture or dislocation Progress Note: X-ray taken of left knee, shows severe arthritis. Patient given knee immobilizer. Plan is to discharge patient home, advised of the importance of orthopedic follow up. Disposition - Disposition Referrals: [facility] [Outside] Disposition: HOME/ ROUTINE Disposition Time: 13:05 Condition: STABLE Additional Instructions: Follow up in Clinic with Orthopedist within 1-2 days. Return to ED if feel worse. Prescriptions: Lidocaine 5% [Lidoderm] 1 patch TP DAILY #30 patch Naproxen [Naprosyn] 1 tab PO BID PRN #25 tab PRN Reason: Pain Instructions: Chronic Knee Pain (DC) Forms: Aras (Guatemalan) - Clinical Impression Clinical Impression: Knee pain - PA / [employer] / Resident Statement MD/DO has reviewed & agrees with the documentation as recorded. - Scribe Statement The provider has reviewed the documentation as recorded by the Scribe Christine Fletcher All medical record entries made by the Scribe were at my direction and personally dictated by me. I have reviewed the chart and agree that the record accurately reflects my personal performance of the history, physical exam, medical decision making, and the department course for this patient. I have also personally directed, reviewed, and agree with the discharge instructions and disposition.
--- NOTE | 2018-08-09 13:13 | RAD ---
PROCEDURE: Left Knee Radiographs. HISTORY: pain COMPARISON: Bilateral knee radiographs performed 12/05/17 FINDINGS: Examination limited by habitus. BONES: No acute displaced fracture. Osteophyte formation. JOINTS: No dislocation. Marked medial compartment joint space narrowing and patellofemoral compartment joint space narrowing. JOINT EFFUSION: No significant joint effusion. OTHER FINDINGS: None. IMPRESSION: No acute displaced fracture or dislocation identified.If symptoms persist, or if there is continued clinical concern, x-ray follow-up in 7-10 days should be considered. Degenerative changes as above.
[2018-08-09 13:32] VITALS: BP 142/88; PULSE 64; TEMP 97.9
[2018-08-09 21:17] VITALS: O2SAT 97
== END 2018-08-09 13:44 | disposition home or self-care (01) ==
LOC: C.ER 11:19
DX: M25.562 Pain in left knee (principal)